=== PATIENT | female | born 1970 | race Caucasian/White ===

== ENCOUNTER 2021-06-15 13:46 | Outpatient (REF) | payer MEDICAID, SELFPAY ==
--- NOTE | ~2021-06-15 | US_ITS ---
EXAMINATION: US VENOUS ULTRASOUND WITH DOPPLER LOWER EXTREMITY, RIGHT CLINICAL INFORMATION: Right leg pain and swelling. COMPARISON: None TECHNIQUE: Ultrasound of the deep veins is performed from the hip to the calf with compression sonography and color and pulse Doppler assessment. Spectral analysis with color-flow imaging is performed. FINDINGS: There is normal venous compression and respiratory variation and augmented flow. The visualized common femoral vein, superficial femoral vein, profunda femoral vein, popliteal vein, and the trifurcation region shows no evidence of deep venous thrombosis. There is no significant popliteal fossa cyst. In the region of concern at the lateral aspect of the right ankle, there is increased edema with vascularity. There is fluid seen along what is likely a tendon, suggestive of tenosynovitis. If the patient's symptoms persist, followup ultrasound in 5 days 7 days might be of value to exclude proximal propagation from a non-visualized calf vein. US/US venous duplex LE RT IMPRESSION: No DVT demonstrated in the right lower extremity. Suspect tenosynovitis along the lateral aspect of the right ankle.
== END 2021-06-15 13:47 | disposition home or self-care (01) ==
LOC: HO.US 13:46
PROVIDERS: Visit Provider Nurse Practitioner Family
DX: M25.571 Pain in right ankle and joints of right foot (principal)
CPT/HCPCS: 93971

== ENCOUNTER 2021-07-15 08:03 | Outpatient (REF) | payer MEDICAID, SELFPAY | END 2021-07-15 08:04 | disposition home or self-care (01) | LOC: HO.HOSX 08:03 | PROVIDERS: Visit Provider Physician Assistant | DX: Z13.89 Encounter for screening for other disorder (principal) ==

== ENCOUNTER 2021-07-22 19:15 | Emergency (ER) | payer MEDICAID, SELFPAY ==
--- NOTE | 2021-07-22 | ECG_ITS ---
Test Reason : SHORTNESS OF BREATH Blood Pressure : / mmHG Vent. Rate : 107 BPM Atrial Rate : 107 BPM P-R Int : 128 ms QRS Dur : 084 ms QT Int : 328 ms P-R-T Axes : 045 044 026 degrees QTc Int : 437 ms Sinus tachycardia Otherwise normal ECG No previous ECGs available Referred By: Generic ED Physician Electronically Signed By:Yuriy Hubbard
--- NOTE | ~2021-07-22 | XR_ITS ---
EXAMINATION: XR CHEST CLINICAL INFORMATION: Covid. Shortness of breath. COMPARISON: None TECHNIQUE: 2 views of the chest were obtained. FINDINGS: The lungs are well expanded. There is no focal consolidation, edema, or effusion. No pneumothorax. The cardiomediastinal silhouette is within normal limits. No acute osseous abnormality. XR/XR chest 2V IMPRESSION: Clear lungs.
[2021-07-22 19:39] VITALS: BP 111/69; BP 150/88; PULSE 102; PULSE 112; RESP 14; TEMP 36.7; O2SAT 98; O2SAT 99; BMI 39.3
[2021-07-22 20:06] LABS: MANUAL DIFF FLAG NO
[2021-07-22 20:08] LABS: Basophils Absolute Auto 0.1 X10*3/uL (0.0-0.2); Basophils Percent Auto 0.7 % (0-2); Eosinophils Absolute Auto 0.2 X10*3/uL (0.0-0.4); Eosinophils Percent Auto 3.5 % (0-4); Hematocrit 40.8 % (37.0-47.0); Hemoglobin 13.3 g/dl (12.0-16.0); Imm Gran Abs Auto 0.01 X10*3/uL (0.00-0.03); Imm Gran Pct Auto 0.1 % (0.0-0.4); Lymphocytes Absolute Auto 1.4 X10*3/uL (1.2-4.9); Lymphocytes Percent Auto 19.9 % (20-40); Mean Corpuscular HGB Conc 32.6 g/dl (31.0-35.0); Mean Corpuscular Hemoglobin 28.9 pg (27.0-33.0); Mean Corpuscular Volume 88.5 fL (80.0-98.0); Mean Platelet Volume 10.3 fL (9.4-12.3); Monocytes Absolute Auto 0.6 X10*3/uL (0.1-1.2); Neutrophils Absolute Auto 4.6 x10*3/uL (2.0-8.3); Neutrophils Percent Auto 66.8 % (45-73); Platelet Count 247 X10*3/uL (160-400); Red Blood Count 4.61 X10*6/uL (4.20-5.50); Red Cell Distribution Width 12.3 % (11.0-16.0); White Blood Count 6.9 X10*3/uL (4.8-10.8)
[2021-07-22 20:23] LABS: Influenza A Negative (Negative); Influenza B2 Negative (Negative)
[2021-07-22 20:38] LABS: Alanine Aminotransferase 30 U/L (0-31); Alkaline Phosphatase 85 U/L (39-117); Anion Gap 14 (12-20); Aspartate Amino Transferase 25 U/L (5-31); Bilirubin Total 0.5 mg/dL (0.0-1.0); Blood Urea Nitrogen 20 mg/dL (9-16); Calcium 9.5 mg/dL (8.4-10.2); Carbon Dioxide 22 mmol/L (22-29); Chloride 103 mmol/L (96-108); Creatinine Clr Calc Pharmacy 76.4; Estimated Glomerular Filt Rate > 60; Glucose Random 110 mg/dL (60-115); Sodium 135 mmol/L (135-145); Total Protein 7.6 g/dL (6.5-8.0)
--- NOTE | 2021-07-22 23:14 | ED_ITS ---
HPI - URI/Sore Throat General Chief Complaint: Upper Respiratory Symptoms Stated Complaint: +Covid Time Seen by Provider: 07/22/21 22:49 Source: patient Mode of arrival: EMS History of Present Illness HPI Narrative: 50-year-old female without significant past medical history of respiratory disorders and denies being a cigarette smoker presents via EMS with reports of cough, sore throat, congestion as well shortness of breath and states that she took go home COVID-19 test and states that was positive. Otherwise she denies any fever, chills, GI or symptoms. Related Data Allergies Allergy/AdvReac Type Severity Reaction Status Date / Time No Known Allergies Allergy Verified 07/22/21 23:03 Review of Systems Review of Systems: Pertinent positives and negatives as stated in HPI 10 point review of systems is otherwise negative. [facility] Past Medical History Source: nursing notes reviewed Social History Social History Advance Directives: No Advance Directives Information Provided: No Physical Exam Vital Signs: Vital Signs: Last Vital Signs Temp 98.1 F 07/22/21 19:39 Pulse 112 H 07/22/21 19:39 Resp 14 07/22/21 19:39 BP 111/69 07/22/21 19:39 Pulse Ox 99 07/22/21 19:39 BMI result Body Mass Index 39.3 VITAL SIGNS: Reviewed. GENERAL: Well developed, well nourished, in no acute distress. HEAD: Normocephalic/atraumatic EYES: PERRLA, EOMI EARS: Ext canals without abnormality, TMs non-bulging and non-erythematous NOSE: Nares patent bilateral OROPHARYNX: no oral lesions noted, posterior pharynx clear and non-erythematous without noted tonsillar enlargement/erythema/exudates NECK: Supple, no adenopathy LUNGS: Normal breath sounds. No adventitious sounds or accessory muscle use. SpO2<99> CARDIOVASCULAR: Regular rate and rhythm without noted murmurs, no JVD or lower extremity edema. ABDOMEN: Soft, non-tender, non-distended with bowel sounds. SKIN: Inspection of the skin reveals no rashes NEUROLOGIC: Alert and oriented x 4. Strength and sensation to light touch were grossly intact x 4. Course Course Course Narrative: 50-year-old female with history and clinical presentation of viral syndrome without history asthma / COPD / cigarette use and review of all vital signs and investigations negative for evidence of tachypnea, elevated temperature, and al though patient is noted to be mildly tachycardic pulse oximetry is within normal limits on room air. COVID is positive and patient was informed of all results and discharged home in stable condition. MDM - URI/Sore Throat Lab Data Result diagrams: 07/22/21 20:01 07/22/21 20:01 Labs: Lab Results 07/22/21 07/22/21 07/22/21 Range/Units 20:01 20:01 20:01 WBC 6.9 (4.8-10.8) X10*3/uL RBC 4.61 (4.20-5.50) X10*6/uL Hgb 13.3 (12.0-16.0) g/dl Hct 40.8 (37.0-47.0) % MCV 88.5 (80.0-98.0) fL MCH 28.9 (27.0-33.0) pg MCHC 32.6 (31.0-35.0) g/dl RDW 12.3 (11.0-16.0) % Plt Count 247 (160-400) X10*3/uL MPV 10.3 (9.4-12.3) fL Immature Gran % (Auto) 0.1 (0.0-0.4) % Neut % (Auto) 66.8 (45-73) % Lymph % (Auto) 19.9 L (20-40) % [place] % (Auto) 9.0 (2-11) % Eos % (Auto) 3.5 (0-4) % Baso % (Auto) 0.7 (0-2) % Lymph # (Auto) 1.4 (1.2-4.9) X10*3/uL [place] # (Auto) 0.6 (0.1-1.2) X10*3/uL Eos # (Auto) 0.2 (0.0-0.4) X10*3/uL Baso # (Auto) 0.1 (0.0-0.2) X10*3/uL Abs Immat Gran (auto) 0.01 (0.00-0.03) X10*3/uL Absolute Neuts (auto) 4.6 (2.0-8.3) x10*3/uL Absolute Nucleated RBC 0.000 (0.0-0.012) X10*3/uL Nucleated RBC % (auto) 0.0 (0.0-0.2) /100WBC Sodium 135 (135-145) mmol/L Potassium 4.0 (3.3-5.1) mmol/L Chloride 103 (96-108) mmol/L Carbon Dioxide 22 (22-29) mmol/L Anion Gap 14 (12-20) BUN 20 H (9-16) mg/dL Creatinine 0.96 (0.5-1.4) mg/dL Estim Creat Clear Calc 76.4 Estimated GFR > 60 Random Glucose 110 (60-115) mg/dL Calcium 9.5 (8.4-10.2) mg/dL Total Bilirubin 0.5 (0.0-1.0) mg/dL AST 25 (5-31) U/L ALT 30 (0-31) U/L Alkaline Phosphatase 85 (39-117) U/L Total Protein 7.6 (6.5-8.0) g/dL Albumin 4.0 (3.5-5.0) g/dL COVID-19 (LENORA) (Negative) COVID-19 Clin Com Influenza Type A (SHERLEY) Negative (Negative) Influenza Type B (SHERLEY) Negative (Negative) Influenza A & B Note See Note 07/22/21 Range/Units 23:07 WBC (4.8-10.8) X10*3/uL RBC (4.20-5.50) X10*6/uL Hgb (12.0-16.0) g/dl Hct (37.0-47.0) % MCV (80.0-98.0) fL MCH (27.0-33.0) pg MCHC (31.0-35.0) g/dl RDW (11.0-16.0) % Plt Count (160-400) X10*3/uL MPV (9.4-12.3) fL Immature Gran % (Auto) (0.0-0.4) % Neut % (Auto) (45-73) % Lymph % (Auto) (20-40) % [place] % (Auto) (2-11) % Eos % (Auto) (0-4) % Baso % (Auto) (0-2) % Lymph # (Auto) (1.2-4.9) X10*3/uL [place] # (Auto) (0.1-1.2) X10*3/uL Eos # (Auto) (0.0-0.4) X10*3/uL Baso # (Auto) (0.0-0.2) X10*3/uL Abs Immat Gran (auto) (0.00-0.03) X10*3/uL Absolute Neuts (auto) (2.0-8.3) x10*3/uL Absolute Nucleated RBC (0.0-0.012) X10*3/uL Nucleated RBC % (auto) (0.0-0.2) /100WBC Sodium (135-145) mmol/L Potassium (3.3-5.1) mmol/L Chloride (96-108) mmol/L Carbon Dioxide (22-29) mmol/L Anion Gap (12-20) BUN (9-16) mg/dL Creatinine (0.5-1.4) mg/dL Estim Creat Clear Calc Estimated GFR Random Glucose (60-115) mg/dL Calcium (8.4-10.2) mg/dL Total Bilirubin (0.0-1.0) mg/dL AST (5-31) U/L ALT (0-31) U/L Alkaline Phosphatase (39-117) U/L Total Protein (6.5-8.0) g/dL Albumin (3.5-5.0) g/dL COVID-19 (LENORA) Positive A (Negative) COVID-19 Clin Com See Note Influenza Type A (SHERLEY) (Negative) Influenza Type B (SHERLEY) (Negative) Influenza A & B Note Discharge Plan Discharge Clinical Impression: Viral syndrome, Lab test positive for detection of COVID-19 virus Patient Disposition: Home, Self-Care Instructions: Viral Syndrome (ED), COVID-19 (Coronavirus Disease 2019) (ED) Additional Instructions: 1. Le cervantes diagnosticado COVID-19 y debe ponerse en cuarentena josefina los pr?ximos 10 a 14 d?as y seguir todas las pautas estatales y federales. 2. Descanse lo suficiente, caridad zaheer agua y recomiende Tylenol/ibuprofeno de venta juan seg?n sea necesario para radha corporales, radha de dariana, temperaturas superiores a 100.4. 3. Programe mis blanche de telemedicina con kenny proveedor de atenci?n primaria el lunes por la ma?brandie. Regrese a la kendall de emergencias si los s?ntomas empeoran. Print Language: Burundian
[2021-07-22 23:25] LABS: COVID-19 Test Positive (Negative)
[2021-07-22] MEDS: Acetaminophen 325 MG TABLET 975 MG PO (23:55)
[2021-07-22] MEDS: Ibuprofen 400 MG TABLET PO (23:55)
== END 2021-07-23 00:24 | disposition home or self-care (01) ==
PROVIDERS: Emergency Provider Student in an Organized Health Care Education/Training Program
DX: U07.1 COVID-19 (principal); Z79.899 Other long term (current) drug therapy
CPT/HCPCS: 71046; 80053; 85025; 87502; 87635; 93005; 99283; 99284

== ENCOUNTER 2021-08-05 15:03 | Outpatient (REF) | payer MEDICAID, SELFPAY ==
--- NOTE | ~2021-08-05 | MM_ITS ---
EXAMINATION: MM SCREENING DIGITAL BREAST TOMOSYNTHESIS, BILATERAL CLINICAL INFORMATION: Screening. Asymptomatic. Age 50. Prior history reduction mammoplasty. Prior outside mammography from [place] unavailable. The lifetime risk of breast cancer based on the Tyrer-Cuzick Model is 12%. COMPARISON: None. TECHNIQUE: Digital breast tomosynthesis is performed in both the craniocaudal and mediolateral oblique views along with computer-aided detection (CAD). Synthesized 2D images are generated from the tomosynthesis. FINDINGS: There are scattered areas of fibroglandular density (ACR BI-RADS breast composition Category b). There is minor scarring and scattered benign rim lucent centered calcifications, greater on left consistent with the prior reduction mammoplasty. There is no significant mass or architectural abnormality or abnormal calcifications. The axilla are unremarkable. MM/MM tomosynthesis screening BI IMPRESSION: No mammographic evidence of malignancy. ASSESSMENT: BI-RADS 2: Benign RECOMMENDATION: Routine annual mammography screening. This patient's information was entered into a reminder system with a target due date for their next mammogram.
== END 2021-08-05 15:04 | disposition home or self-care (01) ==
LOC: HO.MAMMO 15:03
PROVIDERS: Visit Provider Advanced Practice Midwife
DX: Z12.31 Encounter for screening mammogram for malignant neoplasm of breast (principal)
CPT/HCPCS: 77063; 77067

== ENCOUNTER 2021-08-18 07:45 | Outpatient (REF) | payer MEDICAID, SELFPAY ==
--- NOTE | ~2021-08-18 | XR_ITS ---
EXAMINATION: XR ANKLE, RIGHT CLINICAL INFORMATION: Pain COMPARISON: None TECHNIQUE: AP, lateral, and mortise views of the right ankle. FINDINGS: Visualized portion of the distal tibia and fibula demonstrate no fracture. Ankle mortise is maintained. There is mild soft tissue swelling of the ankle, more prominent laterally. No gross ankle joint effusion. Soft tissue calcification within the anterior tissues. XR/XR ankle RT min 3V IMPRESSION: Mild soft tissue swelling of the ankle without fracture.
== END 2021-08-18 07:46 | disposition home or self-care (01) ==
LOC: HO.HOSX 07:45
PROVIDERS: Visit Provider Physician Assistant
DX: M76.71 Peroneal tendinitis, right leg (principal)
CPT/HCPCS: 73610; 99202

== ENCOUNTER → 2021-09-29 15:05 | Outpatient (BNVA) | payer MEDICAID, SELFPAY | PROVIDERS: Visit Provider Physician Assistant | DX: M76.70 Peroneal tendinitis, unspecified leg (principal) | CPT/HCPCS: 99212 ==

== ENCOUNTER 2021-10-05 16:00 | Outpatient (RCR) | payer MEDICAID, SELFPAY ==
--- NOTE | 2021-09-16 08:43 | MHC.PT.EP ---
[facility] [place] Office [place] Office [place] Office [address] [phone] F: [phone] F: [phone] F: [phone] F: [phone] Physical Therapy Plan of Care Date of Evaluation: Date of Surgery: Diagnosis: peroneal tendinitis R leg Assessment: Patient is a 51 year old R handed female who presents with s/s consistent with R ankle pain, peroneal tendinitis. 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 Patient past medical history is fairly unremarkable. Current impairments include pain, gait mechanics, ROM, strength, activity tolerance and functional mobility. Functional limitations include decreased ability to . Patient is motivated with good rehab potential. Skilled PT will address impairments and functional limitations in order to achieve goals. Frequency and Duration: The patient will be seen 2x/week for 5 weeks Short Term Goals: I with HEP -2 weeks Symmetrical AROM - 3 weeks Symmetrical gait mechanics - 3 weeks Planned Giving Officer Goals: Strength grossly 4/5 - 5 weeks pain free work day - 5 weeks LEFS 60/80 - 5 weeks Treatment Plan: Modalities to reduce pain, spasms and effusion. Manual therapy to restore motion and function. Therapeutic exercise to improve strength and flexibility. Neuromuscular re-education for posture and balance. Therapeutic activities to return to functional activities of daily living. Electronically signed by: Jonas Soto PT Please sign and return to therapist. Thank you for your referral.
--- NOTE | 2021-12-29 11:13 | MHC.PT.DC ---
[facility] [place] Office [place] Office [place] Office [address] Deysi Sanford [address] [phone] F: [phone] F: [phone] F: [phone] F: [phone] Physical Therapy Discharge Report Diagnosis: peroneal tendinitis R leg Date of Surgery: Date of Evaluation: 09/15/21 Date of Discharge: 11/19/21 Treatments to Date: 5 Cancellations to Date: No Shows to Date: Discharge Status: Discharge Summary: Pt on HEP. improving slowly with function, reduced s/s. elected to transition to HEP exclusively at this time. Electronically signed by: Jonas Soto PT Please sign and return to therapist. Thank you for your referral.
== END 2021-12-29 11:13 | disposition home or self-care (01) ==
LOC: HO.PTCHIC 16:00
PROVIDERS: Visit Provider Physician Assistant
DX: M76.70 Peroneal tendinitis, unspecified leg (principal)
CPT/HCPCS: 97110; 97112; 97140; 97161

== ENCOUNTER 2021-10-13 15:49 | Outpatient (REF) | payer MEDICAID, SELFPAY ==
--- NOTE | ~2021-10-13 | MR_ITS ---
EXAMINATION: MRI OF THE RIGHT ANKLE WITHOUT CONTRAST CLINICAL INFORMATION: Peroneal tendinitis. COMPARISON: X-ray the right ankle 08/18/2021 TECHNIQUE: Prior right ankle was performed without contrast high-field MRI scanner. FINDINGS: Subcutaneous soft tissues: Mild scattered edema in the medial lateral and aspects of the ankle. Muscles and tendons: Peroneals: Peroneal brevis: There is a longitudinal split tear of the peroneal brevis tendon extending over approximately 1 cm as it passes below the fibula. Proximally and distally the tendon is intact. There is mild associated tenosynovitis. Peroneal longus is intact. The remaining muscles and tendons are normal. Plantar fascia: Normal. Neurovascular structures: Normal. Ligaments: Normal. Bone MR/MR ankle RT wo con IMPRESSION: Focal longitudinal split tear of the peroneal brevis tendon as it passes below the fibula. Mild associated tenosynovitis.
== END 2021-10-13 15:50 | disposition home or self-care (01) ==
LOC: HO.MRI 15:49
PROVIDERS: Visit Provider Physician Assistant
DX: M76.70 Peroneal tendinitis, unspecified leg (principal)
CPT/HCPCS: 73721

== ENCOUNTER → 2021-11-24 12:28 | Outpatient (BNVA) | payer MEDICAID, SELFPAY | PROVIDERS: Visit Provider Physician Assistant | DX: M76.70 Peroneal tendinitis, unspecified leg (principal) | CPT/HCPCS: 99212 ==

== ENCOUNTER → 2021-12-21 15:31 | Outpatient (BNVA) | payer MEDICAID, SELFPAY | PROVIDERS: Visit Provider Orthopaedic Surgery | DX: R20.0 Anesthesia of skin (principal); R20.2 Paresthesia of skin; M65.341 Trigger finger, right ring finger; M65.332 Trigger finger, left middle finger; G56.03 Carpal tunnel syndrome, bilateral upper limbs | CPT/HCPCS: 99202 ==

== ENCOUNTER 2021-12-29 06:45 | Day surgery (SDC) | payer MEDICAID, SELFPAY ==
--- NOTE | 2021-12-29 11:04 | MHC.SHP ---
Pre-Procedural Eval Section A Date of Service: 12/29/21 The patient is an INPATIENT: No Changes since office visit: No Cold of Flu in the past 2 weeks, No New Medical Problems, No Changes in Medication and No Patient answered all questions The History & Physical has been completed within 30 days and I have reviewed it.: Yes Section B Chief Complaint: Carpal tunnel syndrome, right upper limb Allergies: Allergies Allergy/AdvReac Type Severity Reaction Status Date / Time No Known Allergies Allergy Verified 12/21/21 15:41 Plan I have reviewed the history and physical and performed a pertinent physical examination on my patient. No changes have occurred unless specified.
--- NOTE | 2021-12-29 11:05 | P.OP_ITS ---
Operative Note Operative Note Date of Service: 12/29/21 Narrative: Preop diagnosis: 1. Right Carpal tunnel syndrome 2. Right ring finger trigger finger Postop diagnosis: same Procedure: 1. right Carpal tunnel release 2. Right ring finger trigger release Surgeon: Karla Carson MD Anesthesia: local block using 1% lidocaine with epinephrine Findings: Thickened transverse carpal ligament. EBL: Less than 5 mL Specimens: None Complications: None Disposition: Brought to recovery room in stable condition Plan: Follow-up for 10-14 days for wound check and suture removal Indications: The patient is 51 years old, with right carpal tunnel syndrome and right ring finger trigger finger that have beenunresponsive to nonoperative management. The risks and benefits of operative treatment including but not limited to risk of damage to blood vessels, nerves, tendons, infection, persistent pain, persistent symptoms, or possible need for additional surgery were discussed with the patient and the patient wishes to proceed with surgery. Procedure: Once consent was obtained a local block was performed using a combination of 1% lidocaine with epinephrine. The patient was then brought back to the operating suite and placed on the operative table in supine position. A tourniquet was applied to the proximal aspect of the right upper extremity and the limb was prepped and draped in a standard surgical fashion. Once assured that we had a good block, a 2.0 cm longitudinal incision was made centered over the carpal tunnel. The incision was made through the skin to the subcutaneous tissues using a #15 blade. Dissection was made down to the level of the transverse carpal ligament with care being taken to protect the palmar cutaneous nerve. Once the transverse carpal ligament was clearly visualized, a longitudinal incision was made in the transverse carpal ligament 1st using a #15 blade, then using tenotomy scissors under direct visualization. Care was taken to look for and protect the motor branch of the median nerve when seen in this area. Once assured that we had a good block, a 1.5 cm oblique incision was made centered over the A1 ted of the Right ring finger . The incision was made through the skin to the subcutaneous tissues using a #15 blade. Careful dissection was made down to the level of the A1 ted using tenotomy scissors, with care being taken to protect the nearby neurovascular structures. A longit udinal incision was made in the A1 ted 1st using a #15 blade, then using tenotomy scissors under direct visualization. The A1 ted was noted to be thickened. Following our A1 ted release, we no longer saw any locking or catching of the digit with flexion and extension. Once satisfied with our carpal tunnel and trigger releases the wounds were copiously irrigated with normal saline and hemostasis was obtained with a brief period of local pressure. The skin edges were reapproximated with some 5.0 nylon suture material and a sterile dressing was applied. The patient appears to have tolerated the procedure well and with no complications. All digits were well vascularized at the conclusion of the case.
[2021-12-29 12:58] VITALS: BP 135/64; PULSE 74; RESP 18; TEMP 36.6
== END 2021-12-29 13:00 | disposition home or self-care (01) ==
PROVIDERS: Visit Provider Orthopaedic Surgery
PROC: (CPT 64721; principal; 2021-12-29 17:50)
PROC: (CPT 26055; 2021-12-29 17:50)
DX: G56.01 Carpal tunnel syndrome, right upper limb (principal); M65.341 Trigger finger, right ring finger; R20.0 Anesthesia of skin; R20.2 Paresthesia of skin; J30.2 Other seasonal allergic rhinitis; F32.A Depression, unspecified; F41.9 Anxiety disorder, unspecified
CPT/HCPCS: 64721; 26055; J0171

== ENCOUNTER → 2022-07-04 15:37 | Outpatient (BNVA) | payer MEDICAID, SELFPAY | PROVIDERS: Visit Provider Orthopaedic Surgery | DX: M65.341 Trigger finger, right ring finger (principal); M65.332 Trigger finger, left middle finger; G56.03 Carpal tunnel syndrome, bilateral upper limbs; M65.311 Trigger thumb, right thumb; M65.331 Trigger finger, right middle finger; R20.0 Anesthesia of skin; R20.2 Paresthesia of skin | CPT/HCPCS: 20550; 99212; J1100 ==

== ENCOUNTER 2022-07-10 10:04 | Outpatient (REF) | payer MEDICAID, SELFPAY ==
--- NOTE | ~2022-07-10 | XR_ITS ---
EXAMINATION: XR KNEE, BILATERAL XR KNEE, RIGHT CLINICAL INFORMATION: Pain. COMPARISON: None available. TECHNIQUE: AP bilateral knee standing 1 view. Right knee 2 views. FINDINGS: AP Bilateral Knee: There is mild loss of medial compartment joint space both knees. The lateral compartment joint is maintained. No bony erosive changes, loose bodies, fracture or soft tissue swelling. Right Knee: The patellofemoral compartment joint space is normal. No bony erosive changes or loose body seen. The soft tissues are normal. XR/XR knee RT 2V IMPRESSION: 1. Mild degenerative changes medial compartment both knees. No visible acute fracture or dislocation seen. 2. Unremarkable right knee exam.
--- NOTE | ~2022-07-10 | XR_ITS ---
EXAMINATION: XR KNEE, BILATERAL XR KNEE, RIGHT CLINICAL INFORMATION: Pain. COMPARISON: None available. TECHNIQUE: AP bilateral knee standing 1 view. Right knee 2 views. FINDINGS: AP Bilateral Knee: There is mild loss of medial compartment joint space both knees. The lateral compartment joint is maintained. No bony erosive changes, loose bodies, fracture or soft tissue swelling. Right Knee: The patellofemoral compartment joint space is normal. No bony erosive changes or loose body seen. The soft tissues are normal. XR/XR knee standing BI IMPRESSION: 1. Mild degenerative changes medial compartment both knees. No visible acute fracture or dislocation seen. 2. Unremarkable right knee exam.
== END 2022-07-10 10:05 | disposition home or self-care (01) ==
LOC: HO.HOSX 10:04
PROVIDERS: Visit Provider Physician Assistant
DX: M76.891 Other specified enthesopathies of right lower limb, excluding foot (principal)
CPT/HCPCS: 73560; 73565; 99212

== ENCOUNTER 2022-07-12 09:33 | Outpatient (REF) | payer MEDICAID, SELFPAY ==
--- NOTE | ~2022-07-12 | XR_ITS ---
EXAMINATION: XR FOOT, RIGHT CLINICAL INFORMATION: Pain. COMPARISON: Radiographs dated 08/18/2021. TECHNIQUE: AP, lateral, and oblique views of the right foot. FINDINGS: The bones and soft tissues are normal. No fracture. Alignment is anatomic. Joint spaces are maintained. XR/XR foot RT min 3V IMPRESSION: Normal right foot.
== END 2022-07-12 09:34 | disposition home or self-care (01) ==
LOC: HO.XRAY 09:33
PROVIDERS: Visit Provider Emergency Medicine
DX: M79.671 Pain in right foot (principal)
CPT/HCPCS: 73630

== ENCOUNTER 2022-12-25 09:26 | Outpatient (REF) | payer MEDICAID, SELFPAY ==
--- NOTE | ~2022-12-25 | XR_ITS ---
EXAMINATION: XR RIBS, RIGHT CLINICAL INFORMATION: Right rib cage pain. Anterior right rib pain x5 days. No injury. COMPARISON: Chest x-ray 07/22/2021. TECHNIQUE: 3 views of the right ribs were obtained. FINDINGS: The cardiomediastinal silhouette is stable. The lungs are well expanded. No consolidation or effusion. Cholecystectomy clips. No visible rib fracture or suspicious osseous lesion. XR/XR ribs RT min 3V w CXR1V IMPRESSION: No visible rib abnormality. No acute cardiopulmonary findings.
== END 2022-12-25 09:27 | disposition home or self-care (01) ==
LOC: HO.HHCX 09:26
PROVIDERS: Visit Provider Internal Medicine
DX: R07.81 Pleurodynia (principal)
CPT/HCPCS: 71101

== ENCOUNTER 2022-12-25 18:48 | Outpatient (REF) | payer MEDICAID, SELFPAY ==
[2022-12-25 19:41] LABS: Influenza A PCR NEGATIVE (Negative); Influenza B PCR NEGATIVE (Negative); Resp Syncy Virus RNA Qual PCR NEGATIVE (Negative); SARS COV2 PCR INHOUSE NEGATIVE (Negative)
== END 2022-12-25 18:49 | disposition home or self-care (01) ==
LOC: HO.HHCLNP 18:48
PROVIDERS: Visit Provider Internal Medicine
DX: Z20.822 Contact with and (suspected) exposure to COVID-19 (principal); J06.9 Acute upper respiratory infection, unspecified
CPT/HCPCS: 0241U

== ENCOUNTER 2023-06-15 09:32 | Outpatient (REF) | payer MEDICAID, SELFPAY ==
--- NOTE | ~2023-06-15 | XR_ITS ---
EXAMINATION: XR ELBOW, RIGHT CLINICAL INFORMATION: Pain in unspecified elbow. COMPARISON: None available. TECHNIQUE: AP, lateral, and oblique views of the right elbow. FINDINGS: Alignment preserved. Bone mineralization is normal. No significant joint effusion. On the very superior margin of the lateral image of the elbow, there are at least 2 partially imaged densities along the volar aspect of the proximal to mid humeral shaft of indeterminate etiology. Dedicated views of the right humerus and correlation with the clinical exam are recommended to determine further management. Small calcification along the lateral epicondyle may represent a bony exostosis versus soft tissue calcification or avulsion of uncertain age. XR/XR elbow RT min 3V IMPRESSION: 1. On the very superior margin of the lateral image of the elbow, there are at least 2 partially imaged densities along the volar aspect of the proximal to mid humeral shaft of indeterminate etiology. Dedicated views of the right humerus and correlation with the clinical exam recommended to determine further management. 2. Small calcification along the lateral epicondyle may represent a bony exostosis versus soft tissue calcification or avulsion of uncertain age. Correlation with clinical exam recommended. Recommend follow up imaging in 10-14 days if fracture is suspected.
== END 2023-06-15 09:33 | disposition home or self-care (01) ==
LOC: HO.HOSX 09:32
PROVIDERS: Visit Provider Physician Assistant
DX: M77.11 Lateral epicondylitis, right elbow (principal)
CPT/HCPCS: 73080; 99212

== ENCOUNTER 2023-06-15 10:58 | Outpatient (AMB) | payer MEDICAID, SELFPAY ==
--- NOTE | 2023-06-15 11:21 | A.OFFVIS_ITS ---
Intake Vital Signs 06/15/23 11:21 Handedness Right Intake Visit Reasons: New prob- Rt elbow pain Intake Note: Livia is a 52 year old right hand dominant female who presents today for a evaluation of her right elbow pain. Patient reports ongoing pain for more than 2 years. Hx of using ice, antiinflammatories with no relief. Pain is worse when sleeping on the right side. She states that her pain is better when she is using compression wraps. Allergies No Known Allergies Allergy (Verified 06/15/23 11:24) HPI New prob- Rt elbow pain HPI Details 52-year-old right hand dominant female elisa sanchez presents in the office today for an evaluation of right elbow pain. The patient reports ongoing pain for more than 2 years. She claims to have used ice and anti-inflammatories with no relief. She states the pain increases when sleeping on her right side. She states the pain is better with the use of a compression wrap. [facility] Medical History Anxiety Depressed Dryness of vagina Seasonal allergic reaction Sleep disorder Social History (Updated 06/15/23 @ 11:25 by Eduardo Haider) Alcohol intake: never Patient Tobacco Use Status: Never used Tobacco Current occupational status: employed Current occupation: rt hand/ house keeper Review of Systems Const All systems reviewed & are unremarkable except as noted in HPI and below Physical Exam Const General: cooperative, healthy appearing and no acute distress Resp Effort & Inspection: normal respiratory effort and able to speak in complete sentences Cardio Rate: regular rate Peripheral pulses: Peripheral pulses 2+ throughout GI Palpation (GI): Soft to palpation Skin Lesions: no lesions Rashes: no rashes Extrem Other: Right elbow: Normal to inspection. No ecchymosis, erythema, or edema. No tenderness to palpation over the olecranon. No tenderness to the medial epicondyle. Tenderness to palpation along the lateral epicondyle. NVI. Assessment & Plan Assessment & Plan (1) Lateral epicondylitis of right elbow: Code(s): M77.11 - Lateral epicondylitis, right elbow Plan Ms. Vitaly Mohan is a 52-year-old right hand dominant female who presents in the office today for an evaluation of right elbow pain. The patient reports ongoing pain for more than 2 years. She claims to have used ice and anti- inflammatories with no relief. She states the pain increases when sleeping on her right side. She states the pain is better with the use of a compression wrap. We discussed the role of cortisone injections while in the office today. She would like to hold off at this time. A referral has been placed for occupational therapy. Follow up will be in 4 weeks, or sooner if needed. X-rays of the right elbow which were obtained while in the office today and were reviewed by me, Antonieta Alexandra PA-C, revealed no acute fractures or dislocation. Orders: Orders XR elbow RT min 3V Today M25.529 - Pain in unspecified elbow OT Evaluation and Treatment Today M77.11 - Lateral epicondylitis, right elbow Patient Instructions: Scribed by Vida Bennett medical assistant supervisor, for Antonieta Alexandra PA-C on 06/15/2023 at 11:00 am, EST. Coding Level of Care Code Est Pt Level 3 (29968) Diagnoses Lateral epicondylitis of right elbow M77.11
== END 2023-06-15 11:39 | disposition home or self-care (01) ==
PROVIDERS: Visit Provider Physician Assistant
DX: M77.11 Lateral epicondylitis, right elbow (principal)
CPT/HCPCS: 99213

== ENCOUNTER 2023-08-11 22:21 | Emergency (ER) | payer MEDICAID, SELFPAY ==
--- NOTE | ~2023-08-11 | XR_ITS ---
EXAMINATION: XR CHEST, 2 VIEWS CLINICAL INFORMATION: Productive cough. COMPARISON: 12/25/2022 TECHNIQUE: PA and lateral views of the chest were obtained. FINDINGS: Linear atelectasis is suspected at the lung bases. Mild bronchial wall thickening is also suspected in the perihilar regions. No consolidation, pneumothorax, or pleural effusion. Cardiac and mediastinal contours are normal. Pulmonary vasculature is unremarkable. Trachea is midline. Osseous structures are unremarkable. Cholecystectomy clips in the right upper quadrant. XR/XR chest 2V IMPRESSION: Bronchial wall thickening can be seen with a small airways process such as asthma or atypical/viral infection. No focal consolidation.
[2023-08-11 22:25] VITALS: BP 156/94; PULSE 99; O2SAT 98
[2023-08-11 22:45] VITALS: BP 136/70; PULSE 92; RESP 18; TEMP 37.1; O2SAT 96; BMI 37.6
[2023-08-12 00:06] VITALS: O2SAT 96
--- NOTE | 2023-08-12 00:29 | ED.URI ---
HPI - URI/Sore Throat General Chief Complaint: Upper Respiratory Symptoms Stated Complaint: diff breathing, coughing fit, minor wheezing, pain Time Seen by Provider: 08/12/23 00:19 Source: patient Mode of arrival: EMS Limitations: language barrier (Patient speaks Pakistani only, paraprofessional interpreter used) History of Present Illness HPI Narrative: 52-year-old female with a history of anxiety and depression who presents emergency department for evaluation of sore throat cough and shortness of breath. The patient states this morning she developed a sore throat. Pain is worse with swallowing. She states that this evening she drank a glass of water, she states she started coughing, choking and then developed shortness of breath. Her daughter was concerned about her choking and called an ambulance. Patient states that she is currently feeling pain in her throat as if something is stuck in the back of her throat. She also states that it is painful to swallow. She denied fever, chills, nausea or vomiting. At the time my evaluation she denied feeling short of breath. Related Data Home Medications ?Medication ?Instructions ?Recorded ?Confirmed ibuprofen 400 mg tablet 400 mg PO Q6H PRN pain 08/18/21 paroxetine HCl 20 mg tablet 20 mg PO DAILY 08/18/21 risperidone 0.5 mg tablet 0.5 mg PO BEDTIME 08/18/21 risperidone 1 mg tablet 1 mg PO BEDTIME 08/18/21 benzonatate 100 mg capsule 100 mg PO TID PRN cough 12/21/21 capsaicin 0.025 % topical cream appl topical 12/21/21 cetirizine 10 mg tablet 10 mg PO DAILY PRN allergies 12/21/21 cyclobenzaprine 5 mg tablet 5 - 10 mg PO BID PRN pain 12/21/21 tizanidine 4 mg tablet 4 mg PO BEDTIME 12/21/21 Previous Rx's ?Medication ?Instructions ?Recorded omeprazole 20 mg capsule,delayed 20 mg PO DAILY 30 days #30 caps 08/12/23 release Allergies Allergy/AdvReac Type Severity Reaction Status Date / Time No Known Allergies Allergy Verified 08/11/23 22:45 Review of Systems Review of Systems: Yes all other systems are reviewed and are negative [facility] Past Medical History [facility] Narrative: Past medical history: Depression, anxiety. Social history: She denies tobacco, alcohol and drug use. Medical History (Reviewed 07/10/22 @ 14:11 by RUTH Hines Anxiety Depressed Dryness of vagina Seasonal allergic reaction Sleep disorder Social History Social History (Updated 06/15/23 @ 11:25 by Eduardo Haider) Alcohol intake: never Patient Tobacco Use Status: Never used Tobacco Smoked in Last 30 Days: No Use of substances other than those prescribed or required for medical reasons: No Advance Directives: No Advance Directives Information Provided: No Patient : No Current occupational status: employed Current occupation: rt hand/ house keeper Physical Exam Vital Signs: Vital Signs: Last Vital Signs Temp 98.7 F 08/11/23 22:45 Pulse 92 08/11/23 22:45 Resp 18 08/11/23 22:45 BP 136/70 08/11/23 22:45 Pulse Ox 96 08/12/23 00:06 O2 Del Method Room Air 08/12/23 00:06 BMI result Body Mass Index 37.6 Vital signs were normal Exam: General: Awake, alert in no distress, weight 96.3 kg, elevated BMI 37.6 kg per m2 Head: Normocephalic, atraumatic EENT: PERRL, Lids normal, sclera normal, conjunctiva normal, nose normal , ears normal, throat without erythema or exudates Neck: Supple, no adenopathy Lung: breath sounds symmetric, no wheezing, rales or rhonchi Chest: symmetric movement, nontender Heart: regular rate and rhythm, normal S1, S2 no murmurs or rubs Abdomen: soft, non-tender, nondistended, normal bowel sounds Back: no vertebral tenderness, no CVAT Extremities: no deformities, moves all extremities symmetrically Neuro: Awake, alert, oriented, normal speech, cranial nerves intact, moves all extremities symmetrically Psych: Pleasant, cooperative Medications Administered Discontinued Medications Generic Name Dose Route Start Last Admin Trade Name Freq PRN Reason Stop Dose Admin Ibuprofen 400 mg 08/12/23 00:47 08/12/23 01:10 Ibuprofen 400 Mg Tablet PO 08/12/23 00:48 400 mg ONCE STA Administration Medical Decision Making Medical Decision Making [facility] Narrative: 52-year-old female with a history of depression, anxiety who presents emergency department for evaluation of sore throat which began earlier today, difficulty swallowing with an episode of choking, coughing and shortness of breath after try to drink water prior to coming to the emergency department. Patient's vital signs were normal. Patient's physical examination was unremarkable. Differential diagnosis: ?Includes but is not limited to viral pharyngitis, streptococcal pharyngitis, viral syndrome, globus, COVID-19, influenza, RSV Following evaluation was ordered: Rapid strep, COVID, influenza, RSV Patient was initially treated with the following: Ibuprofen 400 mg 1 Course: 02:04 My interpretation patient's laboratory evaluation is as follows: COVID-19, RSV and influenza were negative. Rapid strep was negative. At this time I think that the patient's symptoms are more consistent with GERD causing her cough and and sore throat. Patient will be started on Prilosec 20 mg once a day for 1 month. She was given printed and verbal instructions discharged home. Lab Data Labs: Lab Results 08/12/23 Range/Units 00:30 Influenza Type A (PCR) NEGATIVE (Negative) Influenza Type B (PCR) NEGATIVE (Negative) RSV RNA Qual (PCR) NEGATIVE (Negative) SARS-CoV-2 RNA (RT-PCR) NEGATIVE (Negative) S. pyogenes GrpA SHERLEY Negative (Negative) Discharge Plan Discharge Clinical Impression: GERD with esophagitis Patient Disposition: Home, Self-Care Instructions: Gastroesophageal Reflux Disease (ED) Additional Instructions: Your COVID-19, RSV and influenza tests were negative. Your rapid strep test was negative as well. At this time I believe that your sore throat and cough are caused by too much acid in your stomach that is traveling up your esophagus into the back of your throat. Take Prilosec (omeprazole) 20 mg pills, 1 pill once a day for 1 month. ?This medication shuts off your acid production and lets the inflammation in your stomach and esophagus heal. Follow-up with your doctor in 2 days. Please return to the emergency department if your symptoms get worse or if you develop any symptoms that are concerning to you. Follow-up with your doctor in 2 days. Please return to the emergency department if your symptoms get worse or if you develop any symptoms that are concerning to you. Prescriptions: New omeprazole 20 mg capsule,delayed release(DR/EC) 20 mg PO DAILY 30 Days Qty: 30 0RF No Action risperidone 1 mg tablet 1 mg PO BEDTIME paroxetine HCl 20 mg tablet 20 mg PO DAILY risperidone 0.5 mg tablet 0.5 mg PO BEDTIME ibuprofen 400 mg tablet 400 mg PO Q6H PRN (Reason: pain) cyclobenzaprine 5 mg tablet 5 - 10 mg PO BID PRN (Reason: pain) benzonatate 100 mg capsule 100 mg PO TID PRN (Reason: cough) capsaicin 0.025 % cream topical cetirizine 10 mg tablet 10 mg PO DAILY PRN (Reason: allergies) tizanidine 4 mg tablet 4 mg PO BEDTIME Print Language: Pakistani
[2023-08-12 00:43] LABS: IDNOW Serial# 6674DD1D; Strep A Nucleic Acid Negative (Negative)
[2023-08-12] MEDS: Ibuprofen 400 MG TABLET PO (01:10)
[2023-08-12 01:13] LABS: Influenza A PCR NEGATIVE (Negative); Influenza B PCR NEGATIVE (Negative); Resp Syncy Virus RNA Qual PCR NEGATIVE (Negative); SARS COV2 PCR INHOUSE NEGATIVE (Negative)
[2023-08-12] MEDS: Omeprazole 20 MG CAPSULE.DR PO (02:22)
[2023-08-12 02:26] VITALS: BP 130/72; PULSE 88; RESP 16; TEMP 36.8; O2SAT 96
== END 2023-08-12 02:28 | disposition home or self-care (01) ==
PROVIDERS: Physician Assistant Medical; Emergency Provider Emergency Medicine Emergency Medical Services
DX: K21.00 Gastro-esophageal reflux disease with esophagitis, without bleeding (principal)
CPT/HCPCS: 0241U; 71046; 87651; 99283; 99285

== ENCOUNTER 2024-01-15 08:52 | Outpatient (REF) | payer MEDICAID, SELFPAY ==
[2024-01-15 12:13] LABS: Alanine Aminotransferase 35 U/L (0-31); Alkaline Phosphatase 76 U/L (39-117); Anion Gap 13 (12-20); Aspartate Amino Transferase 34 U/L (5-31); Bilirubin Total 0.3 mg/dL (0.0-1.0); Blood Urea Nitrogen 15 mg/dL (9-16); Calcium 9.5 mg/dL (8.4-10.2); Carbon Dioxide 26 mmol/L (22-29); Chloride 103 mmol/L (96-108); Cholesterol 255 mg/dL (<200); Estimated Glomerular Filt Rate > 60; Glucose Random 103 mg/dL (60-115); HDL Cholesterol 52 mg/dL (>40); LDL Cholesterol Calculated 170 mg/dL (<100); Potassium 4.7 mmol/L (3.3-5.1); Sodium 137 mmol/L (135-145); Triglycerides 167 mg/dL (<150)
[2024-01-15 12:30] LABS: TSH reflex Free T4 0.31 uIU/mL (0.32-4.0)
[2024-01-15 12:56] LABS: HIV AB/AG Nonreactive (Nonreactive); HIV Num 1 0.04 S/CO (0.00-0.99); ~HepC Num1 0.23 S/CO (0.00-0.79); ~Hepatitis C Antibody Nonreactive (Nonreactive)
[2024-01-15 13:16] LABS: Free T4 (Free Thyroxine) 0.95 ng/dL (0.71-1.85)
[2024-01-17 10:59] LABS: RPR Rapid Plasma Reagin NON-REACTIVE (NON-REACTIVE)
== END 2024-01-15 08:53 | disposition home or self-care (01) ==
LOC: HO.HHCL 08:52
PROVIDERS: Visit Provider Nurse Practitioner Primary Care
DX: Z11.3 Encounter for screening for infections with a predominantly sexual mode of transmission (principal)
CPT/HCPCS: 36415; 80053; 80061; 84439; 84443; 86592; 86803; 87389

== ENCOUNTER 2024-05-19 12:08 | Outpatient (REF) | payer MEDICAID, SELFPAY ==
--- OUTSIDE RECORDS SUMMARY | 2024-05-19 13:16 | XMS_ITS | Encounter Summary ---
Author Organization [employer] Address [address] [place] [address] Care Team Providers Care Spanish Speaking Nanny Name Role Phone Carol Ann Shoshana CRANDALL Primary Care Provider [phone] Reason for Visit * Reason Comments Med Refill Encounter Details Date Type Department Care Team ([facility] st Contact Info) Description 05/01/2023 Refill [facility] [address] [place] [address] Carlos Gan FNP Social History Tobacco Use Types Packs/Day Years Used Date Smoking Tobacco: Never Passive Smoke Exposure: Never Smokeless Tobacco: Never Alcohol Use Standard Drinks/Week Comments Never 0 (1 standard drink = 0.6 oz pur e alcohol) Depression Answer Date Recorded Patient Health Questionnaire-9 Score 11 01/16/2023 Housing Stability Answer Date Recorded What is your housing situation today? I have nikhil torres 02/05/[address] you li ve. Do you have problems with any of the following? None of the above 02/05/2023 Food Insecurity Answer Date Recorded Within the past 12 months, y ou worried that your food would run out before you got money to buy more: Sometimes True 2022 Within the past 12 months,th e food you bought just didn't last and you didn't have enough money to get more: Sometimes True 02/05/2023 Transportation Answer Date Recorded In the past 12 months, has l ack of transportation kept you from medical appts, meetings, work or from getting things needed for daily living? No 02/05/2023 Utilities Answer Date Recorded In the past 12 months, has t he electric, gas, oil or water company threatened to shut off services in your home? No 02/05/2023 Depression Answer Date Recorded Patient Health Questionnaire-2 Score 3 01/16/2023 Comments Unknown Sex and Gender Information Value Date Recorded Sex Assigned at Female 02/06/2022 10:39 AM EDT Legal Sex Female 10:39 AM EDT Gender Identity Female 02/06/2022 10:39 AM EDT Sexual Orientation Choose not to disclose 2021 10:39 AM EDT documented as of this encounter Plan of Treatment Not on file documented as of this encounter Visit Diagnoses Not on filedocumented in this encounter Additional Health Concerns Assessment Noted Time PHQ-9 Depression Total Score: 11 023 10:58 AM EDT documented as of this encounter Care Teams Spanish Speaking Nanny Relationship Specialty Start Date End Date Shoshana Maharaj ANP [address] [place] [id number] PCP - General Family Medicine 02/21/21 documented as of this encounter
--- OUTSIDE RECORDS SUMMARY | 2024-05-19 13:16 | XMS_ITS | Clinical Summary ---
Author Organization [employer] Address [address] [facility] [address] [place] [address] Care Team Providers Care Surgery Assistant Name Role Phone Carol Ann Shoshana CRANDALL Primary Care Provider [phone] Allergies No known active allergies Medications * This document contains information received from the source organization and may not represent a complete record from that organization. naproxen (Naprosyn) 500 MG tabletIndicatio ns:Right foot pain Take 1 tablet (500 mg) by mouth every 12 (twelve) hours if needed for mild pain or moderate pain for up to 30 doses. To be taken with food 30 tablet 3 Active Diclofenac Sodium 1 % gelIndications: Rib pain on right side,Right foot pain APPLY TOPICALLY TO TO THE AFFECTED AREA TWICE DAILY NEEDED FOR PAIN 100 g 3 Active escitalopram (Lexapro) 20 MG tablet Take 1 tablet (20 mg) by mouth Once per day. 90 tablet 3 4 Active risperiDONE (RisperDAL) 3 MG tabletIndicatio ns:Major depressive disorder, recurrent, severe with psychotic features (CMS/HCC) Take 1 tablet (3 mg) by mouth at bedtime. 90 tablet 3 4 Active Active Problems Problem Noted Date Diagnosed Date Major depressive disorder with psychotic feature s 05/16/2022 Assessment & Plan (10/15/2023 9:27 AM EDT): Presented with auditory and visual hallucinations, nightmares. Now doing well, with improved sleep and hallucinations controlled. Will continue Lexapro 20 mg daily, Risperidone 3 mg at bedtime. Referring again for counseling. Since this provider will be retiring, patient is now referred back to PCP for further medication management. Call [facility] with any issues or concerns. All her questions were answered and I have wished her well. She agrees with the plan. Assessment & Plan (01/16/2023 11:37 AM EDT): Presented with auditory and visual hallucinations, nightmares. Improved sleep and hallucinations controlled, but depressive symptoms persist. She has been on Paxil 40 mg for many years. At this time will do an in-class switch. Stop the Paxil 40 mg. Start Lexapro 20 mg daily. Continue Risperidone 3 mg at bedtime. Referring again for counseling. F/U with in 1 month. She agrees with the plan. Assessment & Plan (11/30/2022 11:41 AM EDT): Presented with auditory and visual hallucinations, nightmares. Had done better with improved sleep and hallucinations controlled. Patient has been under increased stress leading to worsened symptoms. Was evaluated by Crisis, which was helpful, and she now will have counseling F/U. Feels current medications are fine for now, so will continue Paxil 40 mg daily, Risperidone 3 mg at bedtime. F/U with in 1 month. She agrees with the plan. Assessment & Plan (11/16/2022 1:24 PM EDT): Assessment: Patient with stressed, lack of motivation, isolation, anxiousness, oversleeping, little energy, decreased appetite. he lives with her daughter and the daughter's family. Currently working emergency department cleaning. Reported Hx of SI attempt more than 9 years ago in [place], by overdosing with pills. Yesterday was assessed by Crisis, due to not wanting to be around anymore, but stated is not that I want to . Patient will benefit from Ind. Therapy with CBT approach. At this time Livia Vitaly Mohan meets criteria for Visit Diagnoses: Problem List Items Addressed This Visit Other Major depressive disorder without psychotic features Patient ready to address current needs Yes Strengths include willing to seek treatment PLAN: 1. Follow up with [facility]: Not recommended for follow-up 2. Patient goal is to feel better 3. Behavioral Recommendations a. Ind. Therapy with CBT approach b. Keeping Med. Management appts c. Use of coping skills provided at least 2x/day for 6 months to develop the skills Assessment & Plan (10/23/2022 2:19 PM EDT): Presented with auditory and visual hallucinations, nightmares. Had done better with improved sleep and hallucinations controlled. Unfortunately symptoms have recently worsened again. Will increase now to Paxil 40 mg daily. Continue Risperidone 3 mg at bedtime. F/U with in 6-8 weeks. She agrees with the plan. We will give her the phone number of the agency so she can call to F/U on referral. Assessment & Plan (08/22/2022 1:43 PM EDT): Presented with auditory and visual hallucinations, nightmares. Doing better. Sleeping better and hallucinations controlled. Unfortunately has lost touch with her therapist and although she was encouraged to attempt to reach the therapist she requests a new referral. Continue Paxil 30 mg daily, Risperidone 3 mg at bedtime. F/U with in 6-8 weeks. She agrees with the plan. Assessment & Plan (07/11/2022 2:59 PM EDT): Presented with auditory and visual hallucinations, nightmares. Doing better. Sleeping better and hallucinations controlled. Continue Paxil 30 mg daily, Risperidone 3 mg at bedtime. F/U with therapist and with me in 6 weeks. She agrees with the plan. Assessment & Plan (06/13/2022 2:43 PM EST): Presented with auditory and visual hallucinations, nightmares. Sleeping better and hallucinations controlled, but anxiety and anhedonia persist. Will increase now to Paxil 30 mg daily. Continue Risperidone 3 mg at bedtime. Will consider counseling and call agencies as desired.. F/U 4 weeks. She agrees with the plan. Assessment & Plan (05/16/2022 2:17 PM EST): Presented with auditory and visual hallucinations, nightmares. Had done better with Risperidone 2 mg at bedtime, but again feeling depressed and not sleeping well. Will increase now to Risperidone 3 mg at bedtime to take 1 tablet only, every night (not prn). Continue Paxil 20 mg once daily, consider dose increase of that as well.. F/U 4 weeks. She agrees with the plan. History of COVID-19 05/04/2022 Obesity 05/04/2022 Resolved Problems Problem Noted Date Diagnosed Date Resolved Date Depression 05/04/2022 05/16/2022 Encounters * This document contains information received from the source organization and may not represent a complete record from that organization. Date Type Department Care Team Description 04/03/2024 Telephone [facility] [place] [address] Shoshana Maharaj ANP Appointment Request 03/28/2024 Telephone [facility] [place] [address] Shoshana Maharaj ANP Appointment Request 03/27/2024 1:00 PM EST Office Visit [facility] [address] Shoshana Maharaj ANP Major depressive disorder with psychotic features (CMS/HCC) (Primary Dx); Abnormal TSH; Acute cough; Class 2 severe obesity with serious comorbidity and body mass index (BMI) of 37.0 to 37.9 in adult, unspecified obesity type (CMS/HCC); Mixed hyperlipidemia 03/27/2024 Telephone [facility] [address] Shoshana Maharaj ANP Appointment Request 03/27/2024 Travel from Last 3 Months Immunizations Name Administration Dates Next Due Tdap 02/21/2021 Social History Tobacco Use Types Packs/Day Years Used Date Smoking Tobacco: Former Cigarettes Passive Smoke Exposure: Never Smokeless Tobacco: Never Tobacco Cessation:Counseling Given: Not Answered Alcohol Use Standard Drinks/Week Comments Never 0 (1 standard drink = 0.6 oz pur e alcohol) Depression Answer Date Recorded Patient Health Questionnaire-9 Score 11 10/15/2023 Patient Health Questionnaire-9 Score 11 10/15/2023 Last PHQ-9: Questionnaire Data Not on file 0 10/15/2023 Housing Stability Answer Date Recorded What is your housing situation today? I have nikhil torres 01/28/[address] you li ve. Do you have problems with any of the following? Water leaks 01/28/2024 Food Insecurity Answer Date Recorded Within the past 12 months, y ou worried that your food would run out before you got money to buy more: Often true 01/28/2024 Within the past 12 months,th e food you bought just didn't last and you didn't have enough money to get more: Often true Transportation Answer Date Recorded In the past 12 months, has l ack of transportation kept you from medical appts, meetings, work or from getting things needed for daily living? No 01/28/2024 Utilities Answer Date Recorded In the past 12 months, has t he electric, gas, oil or water company threatened to shut off services in your home? No 01/28/2024 Depression Answer Date Recorded Patient Health Questionnaire-2 Score 4 10/15/2023 Internet Access Answer Date Recorded Internet Access Q1 Yes 01/28/2024 Internet Access Q2 Not on file 01/28/2024 Comments Unknown Sex and Gender Information Value Date Recorded Sex Assigned at Female 02/06/2022 10:39 AM EDT Legal Sex Female 10:39 AM EDT Gender Identity Female 02/06/2022 10:39 AM EDT Sexual Orientation Choose not to disclose 2021 10:39 AM EDT Last Filed Vital Signs Vital Sign Reading Time Taken Comments Blood Pressure 122/75 03/27/2024 1:06 PM EST Pulse 91 03/27/2024 1:06 PM EST Temperature 36.7 ??C (98 ??F) 03/27/2024 1:06 PM EST Respiratory Rate 14 03/27/2024 1:06 PM EST Oxygen Saturation 97% 03/27/2024 1:06 PM EST Inhaled Oxygen Concentration - - Weight 101 kg (222 lb 9.6 oz) 03/27/2024 1:06 PM EST Height 165.1 cm (5' 5 ) 05/21/2023 3:27 PM EST Body Mass Index 37.04 05/21/2023 3:27 PM EST Plan of Treatment Health Maintenance Due Date Last Done Comments CT Colonography 1970 Colonoscopy 1970 Colorectal Cancer Screening 1970 FIT DNA/Cologuard 1970 FIT 1970 FOBT 1970 Sigmoidoscopy 1970 Hepatitis B Vaccines (1 of 3 - 19+ 3-dose series) 1989 Mammogram 2010 Pneumococcal Vaccine: 50+ Years (1 of 1 - PCV) 2020 Zoster Vaccines (1 of 2) 2020 COVID-19 Vaccine (4 - 2023-2 5 season) 2023 04/23/2021, 10/06/2020, 2020 Influenza Vaccine (#1) 2023 Pap Smear 01/20/2024 01/19/2021 Depression Monitoring (PHQ-9) 04/16/2024, 10/15/2023 Depression Screening 10/14/2024 10/15/2023, 10/15/2023 SDOH Screening 01/27/2025 01/28/2024 Alcohol/Substance Use Screening 03/27/2025 03/27/2024 Tobacco Screening 03/27/2025 03/27/2024 Cervical Cancer Screening 01/19/2026 HPV/Cotest 01/19/2026 01/19/2021 Lipid Panel 01/14/2029 01/15/2024, 11/14/2021 DTaP/Tdap/Td Vaccines (2 - T d or Tdap) 02/21/2031 02/21/2021 RSV Patients and Patients Aged 60 years or older (1 - 1-dose 75+ series) 2045 HIV Screening Completed 01/15/2024, 11/14/2021 Hepatitis C Screening Completed 01/15/2024 , 11/14/2021 HIB Vaccines Aged Out No longer eligi ble based on patient's age to complete this topic HPV Vaccines Aged Out No longer eligi ble based on patient's age to complete this topic Hepatitis A Vaccines Aged Out No long er eligible based on patient's age to complete this topic IPV Vaccines Aged Out No longer eligi ble based on patient's age to complete this topic Meningococcal Vaccine Aged Out No anuradha fabiana eligible based on patient's age to complete this topic Pneumococcal Vaccine: Pediatrics (0 to 5 Years) and At-Risk Patients (6 to 49) Years) Aged Out No longer eligible b ased on patient's age to complete this topic RSV under 20 months Aged Out No longe r eligible based on patient's age to complete this topic Rotavirus Vaccines Aged Out No longer eligible based on patient's age to complete this topic Procedures Procedure Name Priority Date/Time Associated Diagnosis Comments POCT INFLUENZA A (ID NOW RAPID MOLECULAR) Routine 03/27/2024 2:22 PM EST Acute cough POCT INFLUENZA B (ID NOW RAPID MOLECULAR) Routine 03/27/2024 2:22 PM EST Acute cough POCT COVID-19 AG SHERWOOD ID NOW Routine 03/27/2024 2:04 PM EST Acute cough HEPATITIS C AB W/REFL TO HCV RNA, QN, PCR Routine 01/15/2024 8:55 AM EDT Routine screening for STI (sexually transmitted infection) HIV 1/2 ANTIGEN/ANTIBODY, FOURTH GENERATION W/RFL Routine 01/15/2024 8:55 AM EDT Routine screening for STI (sexually transmitted infection) LIPID PANEL, STANDARD Routine 01/15/2024 8:55 AM EDT Routine screening for STI (sexually transmitted infection) HPV MRNA E6/E7 Routine 01/19/2021 3:57 PM EDT THINPREP IMAGING SYSTEM PAP Routine 01/19/2021 3:57 PM EDT from Last 3 Months or Most Recently Relevant to Health Maintenance Results * POCT Rapid Influenza B SHERWOOD ID NOW (03/27/2024 2:22 PM EST) Influenza B Negative Negative, Indeterminate [facility] QC Media Lot # [id number] [facility] Lot# Expiration Date [id number] [facility] Swab 03/27/2024 2:22 PM EST us Shoshana Maharaj ANP POINT OF CARE TEST ENTER/EDIT OR DERABLES Final Result [facility] [address] [place] [phone] * POCT Rapid Influenza A SHERWOOD ID NOW (03/27/2024 2:22 PM EST) Pathologist [facility] Influenza A Negative Negative, Indeterminate [facility] QC Media Lot # [id number] [facility] Lot# Expiration Date [facility] Swab 03/27/2024 2:22 PM EST Shoshana Maharaj ANP POINT OF CARE TEST ENTER/EDIT OR DERABLES Final Result Performing Organization Address [facility] Co de Phone Number [facility] [address] [place] [phone] * POCT Rapid Covid-19 SHERWOOD ID NOW (03/27/2024 2:04 PM EST) [facility] [address] Coronavirus Antigen PCR Negative Negative, Indeterminate, None Detected, Invalid, Specimen unsatisfactory for evaluation, Weakly Positive QC Media Lot # [id number] Lot# Expiration Date Swab 03/27/2024 2:04 PM EST Shoshana Maharaj [facility] POINT OF CARE TEST ENTER/EDIT OR DERABLES Final Result * Hepatitis C Antibody with Reflex to HCV, RNA, Quantitative, Real-Time PCR (01/15/2024 8:55 AM EDT) [facility] [address] Hepatitis C Antibody Nonreactive Nonreactive [facility] Comment:Antibodies to HCV no t detected; does not exclude early acuteHCV infection. Blood Venous blood specimen / Unknown 01/15/2024 8:55 AM EDT 01/15/2024 11:35 AM EDT Shoshana Maharaj [facility] LAB BLOOD ORDERABLES Final Resul t Performing Organization Address [facility] Co de Phone Number [facility] [address] [place] [phone] * HIV-1/2 Antigen and Antibodies, Fourth Generation, with Reflexes (01/15/2024 8:55 AM EDT) Pathologist [facility] HIV AB/AG Nonreactive Nonreactive [facility] Comment:HIV-1 p24 Ag and/or HIV-1/HIV-2 Ab not detected.A test result that is nonreactive does not exclude thepossibility of exposure to or infection with HIV-1 and/orHIV-2. Nonreactive results in this assay for individualswith prior exposure to HIV-1 and/or HIV-2 may be due toantigen and antibody levels that are below the limit ofdetection of this assay.The eyefactive HIV Ag/Ab Combo assay result andsupplemental assay results should be interpreted inconjunction with the patient's clinical presentation,history and other laboratory results. If the results areinconsistent with clinical evidence, additional testing issuggested to confirm the result. Blood Venous blood specimen / Unknown 01/15/2024 8:55 AM EDT 01/15/2024 11:35 AM EDT [facility] LAB BLOOD ORDERABLES Final Resul t [facility] [address] [place] [phone] * (ABNORMAL) Lipid Panel, Standard (01/15/2024 8:55 AM EDT) Triglycerides 167(H) <150 mg/dL [facility] Comment:Desirable Triglyceri de: less than 150 mg/dLBorderline High Triglyceride 150-199 mg/dLHigh Triglyceride: 200-499 mg/dLVery High Triglyceride: greater than or equal to 5OO mg/dL Cholesterol 255(H) <200 mg/dL [facility] Comment:Desirable Cholestero l: less than 200 mg/dLBorderline High Cholesterol: 200-239 mg/dLHigh Cholesterol: greater than 239 mg/dL LDL Cholesterol Calculated 170(H) <100 mg/dL [facility] Comment:Desirable LDL: less than 100 mg/dLNear Optimal/Above Optimal LDL: 110- 129 mg/dLBorderline High LDL: 130-159 mg/dLHigh LDL: 160-189 mg/dLVery High LDL: greater than or equal to 190 mg/dL HDL Cholesterol 52 >40 mg/dL [facility] Comment:Desirable HDL: great er than 40 mg/dL Note: This HDL assay may give artificially low results in patients with liver disease. Blood Venous blood specimen / Unknown 01/15/2024 8:55 AM EDT 01/15/2024 11:35 AM EDT Shoshana CRANDALL LAB BLOOD ORDERABLES Final Resul t Performing Organization Address [facility]/ZIP Co de Phone Number [facility] [address] [place] [phone] * THINPREP TIS PAP (01/19/2021 3:57 PM EDT) Clinical Information: None given [facility] COMMENT SEE COMMENT [facility] Comment: EXPLANATORY NOTE: ? The Pap is a screening test for cervical cancer. It is ?? not a diagnostic test and is subject to false negative ?? and false positive results. It is most reliable when a ?? satisfactory sample, regularly obtained, is submitted ?? with relevant clinical findings and history, and when ?? the Pap result is evaluated along with historic and ?? current clinical information. ?? COMMENT: This Pap test has been evaluated with computer assisted technology. [facility] Career Development Director : SEE COMMENT [facility] Comment: MSM, CT(ASCP) CT screening location: [address] ??[phone] Interpretation/R esult: Negative for intraepithelial lesion or malignancy. [facility] LMP: 01/26 [facility] Prev. BX: NONE GIVEN [facility] Prev. PAP: NONE [facility]IVEN [facility] SOURCE: None given [facility] Statement Of Adequacy: SEE COMMENT [facility] Comment: Satisfactory for evaluation. Endocervical/transformation zone component absent. 01/19/2021 3:57 PM EDT Liliya Rebolledo CNM LAB PATHOLOGY ORDERABLES Final Result Performing Organization Address [facility]/ZIP Co de Phone Number [facility] [address] * HPV mRNA E6/E7 (01/19/2021 3:57 PM EDT) HPV nRNA E6/E7 Not Detected Not Detected [facility] Comment: Methodology: School Traffic Supervisor-Mediated Amplification This assay detects E6/E7 viral messenger RNA (mRNA) from 14 high-risk HPV types (16,18,31,33,35,39,45,51,52,56,58,59,66,68). ? The analytical performance characteristics of this assay have been determined by [employer]. The modifications have not been cleared or approved by the FDA. This assay has been validated pursuant to the CLIA regulations and is used for clinical purposes. ?? For additional information, please refer to http://education.DesignMyNight/faq/TER987v9 (This link if provided for information/ educational purposes only.) 01/19/2021 3:57 PM EDT Liliya SULLIVAN LAB BLOOD ORDERABLES Carmela l Result [facility] [address] from Last 3 Months or Most Recently Relevant to Health Maintenance Insurance [place] [address] C3 Care Teams Surgery Assistant Relationship Specialty Start Date End Date Shoshana Maharaj ANP [address] [place] [phone] PCP - General Family Medicine 02/21/21
--- OUTSIDE RECORDS SUMMARY | 2024-05-19 13:16 | XMS_ITS | Encounter Summary ---
Author Organization [employer] Address [address] [place] [id number] Care Team Providers Care Immunohematologist Name Role Phone Shoshana Maharaj Primary Care Provider [phone] Reason for Visit * Reason Onset Date Comments Nurse Triage 11/15/2022 Appointment 11/16/2022 Appt Schedule fo r [facility] Encounter Details Date Type Department Care Team (Late st Contact Info) Description 11/15/2022 Telephone [facility] [address] [place] [address] Shoshana Maharaj ANP [address] [place] [address] Nurse Triage; Appointment (Appt Schedule for BH-[facility]) Social History Tobacco Use Types Packs/Day Years Used Date Smoking Tobacco: Never Passive Smoke Exposure: Never Smokeless Tobacco: Never Alcohol Use Standard Drinks/Week Comments Never 0 (1 standard drink = 0.6 oz pur e alcohol) PHQ-2 Answer Date Recorded Patient Health Questionnaire-2 Score 4 11/16/2022 Comments Unknown Sex and Gender Information Value Date Recorded Sex Assigned at Female 02/06/2022 10:39 AM EDT Legal Sex Female 10:39 AM EDT Gender Identity Female 02/06/2022 10:39 AM EDT Sexual Orientation Choose not to disclose 2021 10:39 AM EDT documented as of this encounter Miscellaneous Notes * Telephone Encounter - Oma Hall MA - 11/16/2022 3:56 PM EDT T/C placed to pt regarding message below. Pt agrees to schedule a sonner appt for psychopharm clinic for 11/30/22 @ 10:45am. Pt was contacted for a BE today. BHI/clinician request a sooner appt. * Telephone Encounter - Thea Bergeron RN - 11/15/2022 9:08 AM EDT Second attempt to reach patient to triage regarding below. No answer, LVM to return call to [facility] triage line. Call placed to [employer] at [phone], requested wellness check for patient due to nature of call below and concerns for patient safety. Advised by dispatch that an officer will besent to the patients home for wellness check. Will call back as needed. Will send to PCP , team andBH team (Carlos MANCILLA) to inform. * Telephone Encounter - Thea Bergeron RN - 11/15/2022 9:07 AM EDT Protocol Used: No Contact or Duplicate Contact Call (Adult) Protocol-Based Disposition: No Contact Call Positive Triage Questions: * No answer. First attempt to contact caller. Follow-up call scheduled within 15 minutes. * Message left on identified voicemail * All higher-acuity triage questions were negative * Telephone Encounter - Jessica Miller - 11/15/2022 8:51 AM EDT Symptoms: Anxiety or Panic Attack, Depression Outcome: Schedule an urgent appointment (within 4 hours) or talk to a nurse or provider soon Reason: Getting worse (bad thoughts to hurt herself) The caller accepted this outcome Patient disconnected call while writer producer tried to get triage nurse on the line. Patient speaks syriac documented in this encounter Plan of Treatment Not on file documented as of this encounter Visit Diagnoses Not on filedocumented in this encounter Additional Health Concerns Assessment Noted Time PHQ-9 Depression Total Score: 14 023 1:47 PM EDT documented as of this encounter Care Teams Immunohematologist Relationship Specialty Start Date End Date Shoshana Maharaj ANP [address] [place] [address] PCP - General Family Medicine 02/21/21 documented as of this encounter
--- OUTSIDE RECORDS SUMMARY | 2024-05-19 13:16 | XMS_ITS | Clinical Summary ---
Author Organization [facility] ity Address [address] [place] [address] Care Team Providers Care Ob/Gyn Physician Name Role Phone Shoshana Maharaj NP Primary Care Provider [phone] Social History Tobacco Use Types Packs/Day Years Used Date Smoking Tobacco: Never Assessed Comments Unknown Sex and Gender Information Value Date Recorded Sex Assigned at Not on file Legal Sex Female 5:59 PM EDT Gender Identity Not on file Sexual Orientation Not on file Last Filed Vital Signs Vital Sign Reading Time Taken Comments Blood Pressure - - Pulse - - Temperature - - Respiratory Rate - - Oxygen Saturation - - Inhaled Oxygen Concentration - - Weight 97.4 kg (214 lb 12.8 oz) 07/24/2023 9:26 AM EDT Height 160 cm (5' 3 ) 07/24/2023 9:26 AM EDT Body Mass Index 38.05 07/24/2023 9:26 AM EDT Plan of Treatment Health Maintenance Due Date Last Done Comments Breast Cancer Screening 1970 DTaP,Tdap,and Td Vaccines (1 - Tdap) 1977 Hepatitis B Vaccines (1 of 3 - 19+ 3-dose series) 1989 Cervical Cancer Screening: P ap Smear 09/16/1991 Pneumococcal Vaccine: 50+ Ye ars (1 of 1 - PCV) 2020 Zoster Vaccines (1 of 2) 2020 COVID-19 Vaccine (2023-2 5 season) 2023 Influenza Vaccine (#1) 2023 Colorectal Cancer Screening: Colonoscopy 03/04/2024 Depression Screening 03/04/2024 HIV Screening 03/04/2024 Hepatitis C Screening 03/04/2024 Social Influencers of Health Screening 03/04/2024 HIB Vaccines Aged Out No longer eligi [...] on patient's age to complete this topic MMR Vaccines Aged Out No longer eligi ble based on patient's age to complete this topic Meningococcal ACWY Vaccine Aged Out N o longer eligible based on patient's age to complete this topic Meningococcal B Vacine Aged Out No lo nger eligible based on patient's age to complete this topic Pneumococcal Vaccine: Pediat rics (0 to 5 Years) and At-Risk Patients (6 to 64 Years) Aged Out No longer eligible b ased on patient's age to complete this topic RSV Immunization Patients Un kiran 20 months Aged Out No longer eligible b ased on patient's age to complete this topic Varicella Vaccines Aged Out No longer eligible based on patient's age to complete this topic Care Teams Ob/Gyn Physician Relationship Specialty Start Date End Date Shoshana Maharaj NP [address] [place] [id number] PCP - General 05/24/23
[2024-05-19 13:59] LABS: TSH reflex Free T4 0.97 uIU/mL (0.32-4.0)
[2024-05-20 21:48] LABS: Thyroid Peroxidase Antibodies 1 IU/mL (<9)
== END 2024-05-19 12:09 | disposition home or self-care (01) ==
LOC: HO.HHCL 12:08
PROVIDERS: Visit Provider Nurse Practitioner Primary Care
DX: R79.89 Other specified abnormal findings of blood chemistry (principal)
CPT/HCPCS: 36415; 84443; 86376

== ENCOUNTER 2025-02-09 10:05 | Outpatient (REF) | payer MEDICAID, SELFPAY ==
--- NOTE | ~2025-02-09 | XR_ITS ---
EXAMINATION: XR SHOULDER, LEFT CLINICAL INFORMATION: left shoudler tendinosis COMPARISON: None available. TECHNIQUE: AP external rotation, Grashey, scapular Y, and axillary views of the left shoulder. FINDINGS: Normal bone mineralization. No fracture, dislocation, or suspicious bone lesion. Normal alignment. The glenohumeral joint demonstrates mild to moderate degenerative arthritis. The AC joint demonstrates mild spurring. There is a type II acromion. No undersurface spurring. The subacromial space is preserved. There is abundant amorphous calcification in the region of the infraspinatus tendon abutting the footplate attachment. Remainder of the soft tissue and bony structures appear normal. XR/XR shoulder LT min 2V IMPRESSION: 1. No acute bony findings of the left shoulder. 2. Moderate calcific tendinopathy of the infraspinatus tendon. 3. Mild to moderate degenerative arthritis of the glenohumeral joint. Electronically signed by: Shiva Edmondson MD 02/09/2025 10:58 AM [facility]
--- OUTSIDE RECORDS SUMMARY | 2025-02-09 09:20 | XMS_ITS | Encounter Summary ---
Author Organization [employer] Address [address] [place] [address] Care Team Providers Care Production Coordinator Name Role Phone Shoshana Maharaj Primary Care Provider [phone] Reason for Visit * Reason Comments left shoulder pain Encounter Details Date Type Department Care Team ([facility] st Contact Info) Description 02/09/2025 9:20 AM EST Office Visit [facility] [address] [place] [address] Biceps tendinosis of left shoulder (Primary Dx); Pectoralis major tendinitis, left Social History Tobacco Use Types Packs/Day Years Used Date Smoking Tobacco: Former Cigarettes Passive Smoke Exposure: Never Smokeless Tobacco: Never Alcohol Use Standard Drinks/Week Comments Never 0 (1 standard drink = 0.6 oz pur e alcohol) Depression Answer Date Recorded Patient Health Questionnaire-9 Score 17 12/30/2024 Patient Health Questionnaire-9 Score 17 12/30/2024 Last PHQ-9: Questionnaire Data Not on file 0 12/30/2024 Housing Stability Answer Date Recorded What is your housing situation today? I have housing today, but I am worried about losing housing in the future 12/30/[address] you li ve. Do you have problems with any of the following? None of the above 12/30/2024 Food Insecurity Answer Date Recorded Within the [...] to shut off services in your home? Yes 12/30/2024 Depression Answer Date Recorded Patient Health Questionnaire-2 Score 3 12/30/2024 Internet Access Answer Date Recorded Internet Access Q1 Yes 01/28/2024 Internet Access Q2 Not on file 01/28/2024 Comments Unknown Sex and Gender Information Value Date Recorded Sex Assigned at Female 02/06/2022 10:39 AM EDT Legal Sex Female 10:39 AM EDT Gender Identity Female 02/06/2022 10:39 AM EDT Sexual Orientation Choose not to disclose 2021 10:39 AM EDT documented as of this encounter Last Filed Vital Signs Vital Sign Reading Time Taken Comments Blood Pressure 122/77 02/09/2025 9:13 AM EST Pulse 85 02/09/2025 9:13 AM EST Temperature 36.4 C (97.5 F) 02/09/2025 9:13 AM EST Respiratory Rate 18 02/09/2025 9:13 AM EST Oxygen Saturation 99% 02/09/2025 9:13 AM EST Inhaled Oxygen Concentration - - Weight 78.3 kg (172 lb 9.6 oz) 02/09/2025 9:13 A M EST Height 160 cm (5' 3 ) 02/09/2025 9:13 AM EST Body Mass Index 30.57 02/09/2025 9:13 AM EST documented in this encounter Miscellaneous Notes * Patient Education Note - Ines Treviño MD - 02/09/2025 2:41 PM EST Images from the original note were not included. Patient Education Table of Contents Ejercicios despu?s de la reparaci?n del manguito rotador: amplitud del movimiento y elongaci?n (Exercises After Rotator Cuff Repair: Range of Motion and Stretching) To view videos and all your education online visit, [email or web address] or scan this QR code with your smartphone. Access to this content will in one year. Ejercicios despu?s de la reparaci?n del manguito rotador: amplitud del movimiento y elongaci?n Exercises After Rotator Cuff Repair: Range of Motion and Stretching Introducci?n Los ejercicios para el hombro pueden ayudarlo a recuperarse despu?s de mis lesi?n. Cody solo los ejercicios que le hayan indicado. Aseg?rese de comprender c?mo hacer los ejercicios de manera vincent. Siga los pasos que se describena continuaci?n. Es normal sentir molestias leves. Det?ngase si siente dolor o el dolor empeora. No comience estos ejercicios hasta que el m?dico se lo indique. Ejercicios de elongaci?n y amplitud de movimiento Estos ejercicios precalientan los m?sculos y las articulaciones. Pueden mejorar la movilidad y la flexibilidad del hombro. La amplitud de movimiento significa cu?nto puede moverse mis parte del cuerpo. En los ejercicios activos, se usan los m?sculos de los brazos para realizar el trabajo. P?ndulo del hombro En lalitha ejercicio, el brazo lesionado se carolann colgando hacia el suelo y luego se lo balancea tristian el p?ndulo de un reloj. 1. P?rese cerca de mis rojas o encimera de la que pueda sostenerse para mantener el equilibrio. Incl?nese hacia adelante desde la cintura y deje caer el brazo renetta/derecho. Use el otro brazopara sostenerse y ayudar a mantener el equilibrio. Relaje los m?sculos del brazo y el hombro renetta/derecho, y mueva la cadera y el tronco de modo que el brazo renetta/derecho se balancee libremente. El brazo debe balancearse por el movimiento del cuerpo, no por la fuerza de los m?sculos del brazo o el?hombro. Contin?e moviendo las caderas y el tronco de modo que el brazo se balancee en las siguientes direcciones, tristian se lo haya indicado el m?dico: De lado a lado. Hacia adelante y hacia atr?s. En c?rculos, en el sentido de las agujas del reloj y en sentido contrario. Vuelva lentamente a la posici?n inicial. Repita veces. Cody lalitha ejercicio ?veces por d?a. Flexi?n del hombro, sentado Lalitha ejercicio a veces se denomina deslizamiento sobre mis rojas. En lalitha ejercicio, debe deslizar el brazo hacia carmen del cuerpo hasta sentir un estiramiento en el hombro?lesionado. 1. Si?ntese en mis silla estable de modo que el antebrazo renetta/derecho pueda apoyarse en mis superficie plana. El codo debe descansar a mis altura en la que la parte superior del brazo est?? junto al cuerpo. Mantenga el hombro renetta/derecho relajado, incl?nese hacia adelante desde la cintura y deje quela mano se deslice hacia adelante (flexi?n). Det?ngase cuando sienta un estiramiento en el hombro ocuando llegue al ?ngulo recomendado por el m?dico. Mantenga esta posici?n josefina segundos. Vuelva a la posici?n inicial lentamente. Repita veces. Cody lalitha ejercicio ?veces por d?a. Abducci?n del hombro, activa-asistida Necesitar?? un rosalind?n, un yoel de escoba o un objeto similar para ayudarse (asistir) a fin de hacereste ejercicio. 1. Acu?stese boca arriba. Esta es la posici?n de mar?bito supino. Sostenga un yoel de escoba, un rosalind?n o un objeto similar. Coloque las fabian separadas a mis distancia un poco mayor que el ancho de diego hombros. La mano izquierda/derecha debe estar con la garcia hacia arriba, y la otra mano debe estar con la garcia hacia abajo. Manteniendo el hombro relajado, empuje el objeto para levantar el brazo renetta/derecho a un costado del cuerpo (abducci?n) y luego por encima de la dariana. Use la otra mano para ayudar a rehabilitation program manager el yoel. Det?ngase cuando sienta un estiramiento en el hombro o cuando llegue al ?ngulo recomendado porel m?dico. Evite encoger el hombro mientras levanta el brazo. Mantenga los om?platos juntos, ll?velos hacia elcentro de la espalda. Mantenga esta posici?n josefina segundos. Vuelva a la posici?n inicial lentamente. Repita veces. Cody lalitha ejercicio ?veces por d?a. Flexi?n del hombro, activa-asistida 1. Acu?stese boca arriba. Puede flexionar las rodillas para estar c?modo. Sostenga un yoel de escoba, un rosalind?n o un objeto similar de modo que las fabian est?n aproximadamente a la distancia del ancho de los hombros. Las anika deben apuntar hacia abajo, en direcci?n a lospies. Levante el brazo renetta/derecho sobre la dariana y hacia atr?s de la dariana, en direcci?n al suelo (flexi?n). Use la otra mano para ayudarse (activa- asistida). Det?ngase cuando sienta un estiramiento en el hombro o cuando llegue al ?ngulo recomendado por el m?dico. Mantenga esta posici?n josefina segundos. Use el yoel y el otro brazo tristian ayuda para que el brazo renetta/derecho regrese a la posici?n inicial. Repita veces. Cody lalitha ejercicio ?veces por d?a. Rotaci?n externa 1. Si?ntese en mis silla estable que no tenga apoyabrazos o p?ngase de pie. Coloque un objeto blando, tristian mis toalla doblada o mis pelota lenny?a, debajo la iva superior delbrazo renetta/derecho. Sostenga un yoel de escoba, un rosalind?n o un objeto similar con las anika hacia abajo, en direcci?n al suelo. Flexione los codos a 90?grados (?ngulo recto) y mantenga las fabian a mis distancia aproximada del ancho de los hombros. Empuje el rosalind?n hacia el lado renetta/derecho. Mantenga el brazo renetta/derecho flexionado. [place] sam?? rotar el antebrazo renetta/derecho en direcci?n contraria a kenny cuerpo (rotaci?n externa). Mantenga esta posici?n josefina segundos. Vuelva a la posici?n inicial lentamente. Repita veces. Cody lalitha ejercicio ?veces por d?a. Esta informaci?n no tiene tristian fin reemplazar el consejo del m?dico. Aseg?rese de hacerle al m?dicocualquier pregunta que tenga. Document Released: 2024-03-26 Document Updated: 2024-03-26 Document Reviewed: 2024-03-26 Elsevier Patient Education ? 2024 [employer]. * Patient Education Note - Ines Treviño MD - 02/09/2025 2:39 PM EST Images from the original note were not included. Patient Education Table of Contents Tendinitis del manguito rotador (Rotator Cuff Tendinitis) To view videos and all your education online visit, [email or web address] or scan this QR code with your smartphone. Access to this content will in one year. Tendinitis del manguito rotador Rotator Cuff Tendinitis La tendinitis del manguito rotador es la inflamaci?n de los tendones del manguito rotador. Los tendones son bandas mendez, similares a cordones, que conectan los m?sculos con los huesos. El manguitorotador es el conjunto de todos los m?sculos y tendones que conectan el brazo al hombro. El manguito rotador sostiene la dariana del h?artem, el hueso de la parte superior del brazo, en el hueco del om?plato (esc?pula). Esta afecci?n puede provocar mis rotura de larga duraci?n (cr?joey). La rotura puede ser parcial o completa. ?Cu?les son las causas? Generalmente, la causa de esta afecci?n es el uso excesivo del manguito rotador. ?Qu?? incrementa el riesgo? Es m?s probable que esta afecci?n se presente en deportistas o personas que en kenny trabajo usan los hombros o extienden los brazos por encima de la dariana con frecuencia. Estos pueden incluir actividades tristian las siguientes: Tenis. B?isbol o s?ftbol. Nataci?n. Trabajo de construcci?n. Trabajo de pintura. ?Cu?les son los signos o s?ntomas? Los s?ntomas de esta afecci?n incluyen: Dolor que se extiende (irradia) desde el hombro hasta la parte superior del brazo. Hinchaz?n y dolor a la palpaci?n en la iva anterior del hombro. Dolor al safe deposit box rental clerk, tirar o levantar el brazo por encima de la dariana. Dolor al bajar el brazo desde encima de la dariana. Dolor leve en el hombro al estar en reposo. Aumento del dolor en el hombro josefina la noche. Dificultad para colocar el brazo detr?s de la espalda. ?C?mo se diagnostica? Esta afecci?n se diagnostica mediante un examen f?sico y los antecedentes m?dicos. Se pueden realizar varias pruebas para confirmar el diagn?stico, por ejemplo: Radiograf?as. Tomograf?a computarizada (TC). Resonancia magn?zoya (RM). Ecograf?a. ?C?mo se trata? El tratamiento depende de la gravedad de la afecci?n. En casos no fernandez graves, el tratamiento puede incluir: Reposo. [place] se puede lograr con un cabestrillo que mantiene el hombro fijo (inmovilizaci?n). El m?dico tambi?n puede recomendarle que evite realizar actividades que requieran levantar el brazo por encima de la dariana. Aplicar hielo en el hombro. Medicamentos antiinflamatorios, tristian aspirina o ibuprofeno. Cuando los casos son m?s graves, el tratamiento puede incluir: Fisioterapia. Inyecciones de corticoesteroides. Cirug?a. Siga estas indicaciones en kenny casa: Si tiene un cabestrillo extra?ble: ?selo tristian se lo haya indicado el m?dico. Qu?teselo solamente tristian se lo haya indicado el m?dico. Controle la piel alrededor del cabestrillo todos los d?as. Informe al m?dico acerca de cualquier inquietud. Afloje el cabestrillo si los dedos de la mano se le entumecen, siente hormigueo o se le enfr?an o se tornan de color jef. Mantenga el cabestrillo limpio y seco. Si el cabestrillo no es impermeable: ? No deje que se moje. ? Qu?teselo tristian se lo haya indicado el m?dico cuando tome un ba?o de inmersi?n o mis ducha. Control del dolor, la rigidez y la hinchaz?n Aplique hielo sobre la iva lesionada si se lo indican. ? Si tiene un cabestrillo desmontable, qu?teselo tristian se lo haya indicado el m?dico. ? Ponga el hielo en mis bolsa pl?stica. ? Coloque mis toalla entre la piel y la bolsa. ? Aplique el hielo josefina 20?minutos, 2 o 3?veces por d?a. ? Si la piel se le pone de color ramirez brillante, retire el hielo de inmediato para evitar da?os en la piel. El riesgo de da?o es mayor si no puede sentir dolor, calor o fr?o. Mueva los dedos con frecuencia para reducir la rigidez y la hinchaz?n. Cuando est?? sentado o acostado, levante (eleve) la iva lesionada por encima del nivel del coraz?n. ? Busque mis posici?n c?moda para dormir o duerma sobre un sill?n reclinable, si fuera posible. Actividad Mantenga el hombro en reposo tristian se lo haya indicado el m?dico. Preg?ntele al m?dico cu?ndo es seguro conducir si tiene un cabestrillo en el brazo. Retome diego actividades normales tristian se lo haya indicado el m?dico. Preg?ntele al m?dico qu?? actividades son seguras para usted. Cody ejercicios o elongue tristian se lo haya indicado el m?dico o el fisioterapeuta. Si hace tareas repetitivas que implican levantar los brazos por encima de la dariana, tome descansosbreves y realice ejercicios de estiramiento tristian se lo haya indicado el m?dico. Indicaciones generales No consuma yehuda?n producto que contenga nicotina o tabaco. Estos productos incluyen cigarrillos, tabaco para mascar y aparatos de vapeo, tristian los cigarrillos electr?nicos. Estos pueden retrasar la recuperaci?n. Si necesita ayuda para dejar de consumir estos productos, consulte al m?dico. Use los medicamentos de venta juan y los recetados solo tristian se lo haya indicado el m?dico. Comun?quese con un m?dico si: El dolor empeora. Siente un dolor nuevo en el brazo, las fabian o los dedos. El dolor no se aston con medicamentos ni mejora despu?s de 6 semanas de tratamiento. Tiene la sensaci?n de un crujido cuando mueve el hombro en ciertos sentidos. Oye el rasheed de un chasquido despu?s de usar el hombro y va seguido de dolor y debilidad intensos. El brazo, la mano o los dedos est?n adormecidos o siente hormigueos. Solicite ayuda de inmediato si: El brazo, la mano o los dedos est?n hinchados, doloridos o se gail blancos o azules. Esta informaci?n no tiene tirstian fin reemplazar el consejo del m?dico. Aseg?rese de hacerle al m?dicocualquier pregunta que tenga. Document Released: 2009-07-12 Document Updated: 2022-12-12 Document Reviewed: 2022-12-12 DAXKO Patient Education ? 2024 [employer]. * Assessment & Plan Note - Ines Treviño MD - 02/09/2025 10:21 AM EST Associated Problem(s): Biceps tendinosis of left shoulder - Prescribed meloxicam once daily for 2 weeks, Advised acetaminophen (Tylenol) as needed for pain. - Provided shoulder exercises to improve mobility and strength. - Referred to physical therapy. Follow-up as needed based on response to treatment. documented in this encounter Plan of Treatment Not on file documented as of this encounter Procedures Procedure Name Priority Date/Time Associated Diagnosis Comments XR SHOULDER 2+ VIEWS LEFT Routine 02/09/2025 10:32 AM EST Biceps tendinosis of left shoulder documented in this encounter Results * XR Shoulder 2+ Views Left (02/09/2025 10:32 AM EST) Anatomical Region Laterality Modality Upper Extremities, Shoulder Left Radi ographic Imaging 02/09/2025 10:3 2 AM EST Narrative 02/09/2025 11:01 AM EST [facility] [address] [place] [address] XRay Report Signed Patient: Livia Titus R#: [id number] : 1970 Acct:[id number] Age/Sex: 54 / F ADM Date: 02/09/25 Loc: HO.HHCX Attending Dr: Ines Treviño MD Ordering Physician: Ines Treviño MD Date of Service: 02/09/25 Procedure(s): XR shoulder LT min 2V Accession Number(s): [id number] cc: Ines Treviño MD Reason for Exam: left shoudler tendinosis EXAMINATION: XR SHOULDER, LEFT CLINICAL INFORMATION: left shoudler tendinosis COMPARISON: None available. TECHNIQUE: AP external rotation, Grashey, scapular Y, and axillary views of the left shoulder. FINDINGS: Normal bone mineralization. No fracture, dislocation, or suspicious bone lesion. Normal alignment. The glenohumeral joint demonstrates mild to moderate degenerative arthritis. The AC joint demonstrates mild spurring. There is a type II acromion. No undersurface spurring. The subacromial space is preserved. There is abundant amorphous calcification in the region of the infraspinatus tendon abutting the footplate attachment. Remainder of the soft tissue and bony structures appear normal. XR/XR shoulder LT min 2V IMPRESSION: 1. No acute bony findings of the left shoulder. 2. Moderate calcific tendinopathy of the infraspinatus tendon. 3. Mild to moderate degenerative arthritis of the glenohumeral joint. Electronically signed by: Shiva Edmondson MD 02/09/2025 10:58 AM EST Dictated By: Shiva Edmondson MD Signed By: <Electronically signed by Shiva Edmondson MD in OV> 02/09/25 1058 DD/ 31 TD/TT: 02/09/25 105 Tool Technician: Procedure Note Graemeotjamesdonter, Image - 02/09/[address] [address] XRay Report Signed Patient: Sarbjit Titus R#: [id number] : 1970Acct:[id number] Age/Sex: 54 / FADM Date: 02/09/25 Loc: HO.HHCX Attending Dr: Ines Treviño MD Ordering Physician: Ines Treviño MD Date of Service: 02/09/25 Procedure(s): XR shoulder LT min 2V Accession Number(s): [id number] cc: Ines Treviño MD Reason for Exam: left shoudler tendinosis EXAMINATION: XR SHOULDER, LEFT CLINICAL INFORMATION: left shoudler tendinosis COMPARISON: None available. TECHNIQUE: AP external rotation, Grashey, scapular Y, and axillary views of the left shoulder. FINDINGS: Normal bone mineralization. No fracture, dislocation, or suspicious bone lesion. Normal alignment. The glenohumeral joint demonstrates mild to moderate degenerative arthritis. The AC joint demonstrates mild spurring. There is a type II acromion. No undersurface spurring. The subacromial space is preserved. There is abundant amorphous calcification in the region of the infraspinatus tendon abutting the footplate attachment. Remainder of the soft tissue and bony structures appear normal. XR/XR shoulder LT min 2V IMPRESSION: 1. No acute bony findings of the left shoulder. 2. Moderate calcific tendinopathy of the infraspinatus tendon. 3. Mild to moderate degenerative arthritis of the glenohumeral joint. Electronically signed by: Shiva Edmondson MD 02/09/2025 10:58 AM EST Dictated By: Shiva Edmondson MD Signed By: <Electronically signed by Shiva Edmondson MD in OV> 02/09/25 1058 DD/ 1032 TD/TT: 02/09/25 1054 Tool Technician: us Ines Treviño MD IMG XR PROCEDURES Edited Result - Final documented in this encounter Visit Diagnoses Diagnosis Biceps tendinosis of left shoulder- Primary Pectoralis major tendinitis, left documented in this encounter Additional Health Concerns Assessment Noted Time PHQ-9 Depression Total Score: 17 025 9:07 AM EDT documented as of this encounter Care Teams Production Coordinator Relationship Specialty Start Date End Date Shoshana Maharaj ANP [address] [place] [id number] PCP - General Family Medicine 02/21/21 documented as of this encounter
--- OUTSIDE RECORDS SUMMARY | 2025-02-09 12:03 | XMS_ITS | Encounter Summary ---
Author Organization [employer] Address [address] [facility] [address] [place] [address] Care Team Providers Care Computational Sciences Professor Name Role Phone Carol Ann Shoshana CRANDALL Primary Care Provider [phone] Reason for Visit * Reason Comments Med Refill Encounter Details Date Type Department Care Team ([facility] st Contact Info) Description 05/01/2023 Refill [facility] [address] [place] [address] Carlos Gan FNP Social History Tobacco Use [...] documented as of this encounter Care Teams Computational Sciences Professor Relationship Specialty Start Date End Date Shoshana Maharaj ANP [address] [place] [address] PCP - General Family Medicine 02/21/21 documented as of this encounter
--- OUTSIDE RECORDS SUMMARY | 2025-02-09 12:03 | XMS_ITS | Clinical Summary ---
Author Organization [employer] Address [address] [facility] [address] [place] [address] Care Team Providers Care Customer Assistance Representative Name Role Phone Shoshana Maharaj Primary Care Provider [phone] Allergies No known active allergies Medications * This document contains information received from the source organization and may not represent a complete record from that organization. naproxen (Naprosyn) 500 MG tabletIndications :Right foot pain Take 1 tablet (500 mg) by mouth every 12 (twelve) hours if needed for mild pain or moderate pain for up to 30 doses. To be taken with food 30 tablet 3 Active Diclofenac Sodium 1 % gelIndications:Ri b pain on right side,Right foot pain APPLY TOPICALLY TO TO THE AFFECTED AREA TWICE DAILY NEEDED FOR PAIN 100 g 3 Active Tirzepatide-Weigh t Management (Zepbound) 7.5 MG/0.5ML solution auto-injectorIndi cations:Class 3 severe obesity with serious comorbidity and body mass index (BMI) of 40.0 to 44.9 in adult, unspecified obesity type (HCC) Inject 0.5 mL (7.5 mg) under the skin 1 (one) time per week. 2 mL 2 5 Active albuterol 108 (90 Base) MCG/ACT inhalerIndication s:Mild intermittent reactive airway disease without complication Take 1-2 puffs every 4-6 hours as needed for cough/SOB 6.7 g 1 5 Active escitalopram (Lexapro) 20 MG tablet Take 1 tablet (20 mg) by mouth Once per day. 90 tablet 3 5 Active meloxicam (Mobic) 15 MG tablet Take 1 tablet (15 mg) by mouth Once per day. 30 tablet 5 02/10/20 26 Active acetaminophen (Tylenol Extra Strength) 500 MG tablet Take 1 tablet (500 mg) by mouth every 6 (six) hours if needed for mild pain. 120 tablet 5 03/11/20 25 Active Active Problems Problem Noted Date Diagnosed Date Biceps tendinosis of left shoulder 02/09/2025 Assessment & Plan (02/09/2025 10:21 AM EST): - Prescribed meloxicam once daily for 2 weeks, Advised acetaminophen (Tylenol) as needed for pain. - Provided shoulder exercises to improve mobility and strength. - Referred to physical therapy. Follow-up as needed based on response to treatment. Pectoralis major tendinitis, left 02/09/2025 Reactive airway disease without complication Macromastia 12/30/2024 Mixed hyperlipidemia 06/23/2024 Moderate major depression (CMS/HCC) 05/16/2022 Assessment & Plan (12/30/2024 11:03 AM EDT): >>ASSESSMENT AND PLAN FOR MAJOR DEPRESSIVE DISORDER WITH PSYCHOTIC FEATURES (CMS/HCC) WRITTEN ON 05/16/2022 2:17 PM BY LAURENT CANALES Presented with auditory and visual hallucinations, nightmares. [...] agrees with the plan. Assessment & Plan (12/30/2024 11:03 AM EDT): >>ASSESSMENT AND PLAN FOR MAJOR DEPRESSIVE DISORDER WITH PSYCHOTIC FEATURES (CMS/HCC) WRITTEN ON 06/13/2022 2:43 PM BY LAURENT CANALES Presented with auditory and visual hallucinations, nightmares. Sleeping better and hallucinations controlled, but anxiety and anhedonia persist. Will increase now to Paxil 30 mg daily. Continue Risperidone 3 mg at bedtime. Will consider counseling and call agencies as desired.. F/U 4 weeks. She agrees with the plan. Assessment & Plan (12/30/2024 11:03 AM EDT): >>ASSESSMENT AND PLAN FOR MAJOR DEPRESSIVE DISORDER WITH PSYCHOTIC FEATURES (CMS/HCC) WRITTEN ON 07/11/2022 2:59 PM BY SUSAN CANALESP Presented with auditory and visual hallucinations, nightmares. Doing better. Sleeping better and hallucinations controlled. Continue Paxil 30 mg daily, Risperidone 3 mg at bedtime. F/U with therapist and with me in 6 weeks. She agrees with the plan. Assessment & Plan (12/30/2024 11:03 AM EDT): >>ASSESSMENT AND PLAN FOR MAJOR DEPRESSIVE DISORDER WITH PSYCHOTIC FEATURES (CMS/HCC) WRITTEN ON 08/22/2022 1:43 PM BY SUSAN CANALESP Presented with auditory and visual hallucinations, nightmares. Doing better. Sleeping better and hallucinations controlled. Unfortunately has lost touch with her therapist and although she was encouraged to attempt to reach the therapist she requests a new referral. Continue Paxil 30 mg daily, Risperidone 3 mg at bedtime. F/U with in 6-8 weeks. She agrees with the plan. Assessment & Plan (12/30/2024 11:03 AM EDT): >>ASSESSMENT AND PLAN FOR MAJOR DEPRESSIVE DISORDER WITH PSYCHOTIC FEATURES (CMS/HCC) WRITTEN ON 10/23/2022 2:19 PM BY SUSAN CANALESP Presented with auditory and visual hallucinations, nightmares. [...] to F/U on referral. Assessment & Plan (12/30/2024 11:03 AM EDT): >>ASSESSMENT AND PLAN FOR MAJOR DEPRESSIVE DISORDER WITH PSYCHOTIC FEATURES (CMS/HCC) WRITTEN ON 11/16/2022 1:24 PM BY GUSTAVO MORGAN Assessment: Patient with stressed, lack of motivation, isolation, anxiousness, oversleeping, little energy, decreased appetite. he lives with her daughter and the daughter's family. Currently working tools and parts attendant cleaning. Reported Hx of SI attempt more than 9 years ago in [place], by overdosing with pills. Yesterday was assessed by Crisis, due to not wanting to be around anymore, but stated is not that I want to . Patient will benefit from Ind. Therapy with CBT approach. At this time Livia Mohan meets criteria for Visit Diagnoses: Problem List Items Addressed This Visit Other Major depressive disorder without psychotic features Patient ready to address current needs Yes Strengths include willing to seek treatment PLAN: Follow up with [facility]: Not recommended for follow-up Patient goal is to feel better Behavioral Recommendations Ind. Therapy with CBT approach Keeping Med. Management appts Use of coping skills provided at least 2x/day for 6 months to develop the skills Assessment & Plan (12/30/2024 11:03 AM EDT): >>ASSESSMENT AND PLAN FOR MAJOR DEPRESSIVE DISORDER WITH PSYCHOTIC FEATURES (CMS/HCC) WRITTEN ON 11/30/2022 11:41 AM BY LAURENT CANALES Presented with auditory and visual hallucinations, nightmares. [...] agrees with the plan. Assessment & Plan (12/30/2024 11:03 AM EDT): >>ASSESSMENT AND PLAN FOR MAJOR DEPRESSIVE DISORDER WITH PSYCHOTIC FEATURES (CMS/HCC) WRITTEN ON 01/16/2023 11:37 AM BY LAURENT CANALES Presented with auditory and visual hallucinations, nightmares. [...] agrees with the plan. Assessment & Plan (12/30/2024 11:03 AM EDT): >>ASSESSMENT AND PLAN FOR MAJOR DEPRESSIVE DISORDER WITH PSYCHOTIC FEATURES (CMS/HCC) WRITTEN ON 10/15/2023 9:27 AM BY LAURENT CANALES Presented with auditory and visual hallucinations, nightmares. Now doing well, with improved sleep and hallucinations controlled. Will continue Lexapro 20 mg daily, Risperidone 3 mg at bedtime. Referring again for counseling. Since this provider will be retiring, patient is now referred back to PCP for further medication management. Call [facility] with any issues or concerns. All her questions were answered and I have wished her well. She agrees with the plan. History of COVID-19 05/04/2022 Obesity 05/04/2022 Resolved Problems Problem Noted Date Diagnosed Date Resolved Date Depression 05/04/2022 05/16/2022 Encounters * This document contains information received from the source organization and may not represent a complete record from that organization. Date Type Department Care Team Description 02/09/2025 9:20 AM EST Office Visit [facility] [address] [place] [phone] Biceps tendinosis of left shoulder (Primary Dx); Pectoralis major tendinitis, left 01/05/2025 Telephone [facility] MEDICINE [address] [place] [phone] Shoshana Maharaj ANP insurance referral 12/30/2024 9:15 AM EDT Office Visit [facility] [address] [place] [phone] Shoshana Maharaj ANP Mixed hyperlipidemia (Primary Dx); Major depressive disorder with psychotic features (CMS/HCC); Class 1 obesity with serious comorbidity and body mass index (BMI) of 33.0 to 33.9 in adult, unspecified obesity type; Macromastia; Need for hepatitis B screening test; Mild intermittent reactive airway disease without complication; Encounter for immunization; Food insecurity; Low income 12/30/2024 Refill [facility] [address] [place], [place] [phone] Shoshana Maharaj ANP 12/30/2024 Travel 12/29/2024 Telephone [facility] MED[facility] [address] [place] [phone] Shoshana Maharaj ANP chart prep 11/26/2024 Refill [facility] [address] [place] [address] Shoshana Maharaj ANP Class 3 severe obesity with serious comorbidity and body mass index (BMI) of 40.0 to 44.9 in adult, unspecified obesity type from Last 3 Months Immunizations Immunization Administration Dates Next Due Influenza, seasonal, injectable, preservative fr ee 12/30/2024 Pneumococcal Conjugate PCV 20 12/30/2024 Tdap 02/21/2021 Social History Tobacco Use Types [...] Mass Index 30.57 02/09/2025 9:13 AM EST Plan of Treatment Health Maintenance Due Date Last Done Comments CT Colonography 1970 Colonoscopy 1970 Colorectal Cancer Screening 1970 FIT DNA/Cologuard 1970 FIT 1970 FOBT 1970 Sigmoidoscopy 1970 Hepatitis B Vaccines (1 of 3 - 19+ 3-dose series) 1989 Mammogram 2010 Zoster Vaccines (1 of 2) 2020 COVID-19 Vaccine (4 - 2024-2 6 season) 2024 04/23/2021, 10/06/2020, 2020 Alcohol/Substance Use Screening 03/27/2025 03/27/2024 Depression Monitoring 06/29/2025 12/30/2024 , 12/30/2024 Disability Screening 09/26/2025 09/26/2024 SDOH Screening 12/30/2025 12/30/2024 Tobacco Screening 12/30/2025 12/30/2024 Cervical Cancer Screening 01/19/2026 HPV/Cotest 01/19/2026 01/19/2021 Pap Smear 01/19/2026 01/19/2021 Lipid Panel 01/14/2029 01/15/2024, 11/14/2021 DTaP/Tdap/Td Vaccines (2 - T d or Tdap) 02/21/2031 02/21/2021 RSV Patients and Patients Aged 60 years or older (1 - 1-dose 75+ series) 2045 HIV Screening Completed 01/15/2024, 11/14/2021 Hepatitis C Screening Completed 01/15/2024 , 11/14/2021 Influenza Vaccine Completed 12/30/2024 Pneumococcal Vaccine: 50+ Years Completed 12/30/2024 HIB Vaccines Aged Out No longer eligi [...] age to complete this topic Meningococcal B Vaccine Aged Out No l onger eligible based on patient's age to complete [...] AM EST Biceps tendinosis of left shoulder HEPATITIS C AB W/REFL TO HCV RNA, [...] Recently Relevant to Health Maintenance Results * XR Shoulder 2+ Views Left (02/09/2025 10:32 AM EST) Anatomical Region Laterality Modality Upper Extremities, Shoulder Left Radi ographic Imaging 02/09/2025 10:3 2 AM EST Narrative 02/09/2025 11:01 AM EST [facility] [address] [place] [address] XRay Report Signed Patient: Livia Titus#: [id number] : 1970 Acct:[id number] Age/Sex: 54 / F ADM Date: 02/09/25 Loc: HO.HHCX Attending Dr: Ines Treviño MD Ordering Physician: Ines Treviño MD Date of Service: 02/09/25 Procedure(s): XR shoulder LT min 2V Accession Number(s): [id number] cc: Ines Treviño MD Reason for Exam: [...] in OV> 02/09/25 1058 DD/ 31 TD/TT: 02/09/251053 Range Technician: Procedure Note Graemeotjoanter, Image - 02/09/[address] [address] XRay Report Signed Patient: Sarbjit Titus R#: [id number] : 1970Acct:[id number] Age/Sex: 54 / FADM Date: 02/09/25 Loc: HO.HHCX Attending Dr: Ines Treviño MD Ordering Physician: Ines Treviño MD Date of Service: 02/09/25 Procedure(s): XR shoulder LT min 2V Accession Number(s): [id number] cc: Ines Treviño MD Reason for Exam: [...] by: Shiva Edmondson MD 02/09/2025 10:58 AM [facility] Dictated By: Shiva Edmondson MD Signed By: <Electronically signed by Shiva Edmondson MD in OV> 02/09/25 1058 DD/ 1032 TD/TT: 02/09/25 1054 Range Technician: Ines Treviño MD IMG XR PROCEDURES Edited Result - Final * Hepatitis C Antibody with Reflex to HCV, RNA, Quantitative, Real-Time PCR (01/15/2024 8:55 AM EDT) Hepatitis C Antibody Nonreactive Nonreactive [facility] Comment:Antibodies to HCV no t detected; does not exclude early acuteHCV infection. Blood Venous blood specimen / Unknown 01/15/2024 8:55 AM EDT 01/15/2024 11:35 AM EDT Shoshana Maharaj [facility] LAB BLOOD ORDERABLES Final Resul t Performing Organization Address [facility] de Phone Number [facility] [address] [place] [phone] * HIV-1/2 Antigen and Antibodies, Fourth Generation, with Reflexes (01/15/2024 8:55 AM EDT) Pathologist [facility] HIV AB/AG Nonreactive Nonreactive [facility] Comment:HIV-1 p24 Ag and/or HIV-1/HIV-2 Ab not detected.A test result that is nonreactive does not exclude thepossibility of exposure to or infection with HIV-1 and/orHIV-2. Nonreactive results in this assay for individualswith prior exposure to HIV-1 and/or HIV-2 may be due toantigen and antibody levels that are below the limit ofdetection of this assay.[employer] HIV Ag/Ab Combo assay result andsupplemental assay results should be interpreted inconjunction with the patient's clinical presentation,history and other laboratory results. If the results areinconsistent with clinical evidence, additional testing issuggested to confirm the result. Blood Venous blood specimen / Unknown 01/15/2024 8:55 AM EDT 01/15/2024 11:35 AM EDT hSoshana CRANDALL LAB BLOOD ORDERABLES Final Resul t Performing Organization Address [facility] Co de Phone Number [facility] [address] [place] [phone] * (ABNORMAL) Lipid Panel, Standard (01/15/2024 8:55 AM EDT) Triglycerides 167(H) <150 mg/dL [facility] Comment:Desirable Triglyceri de: less than 150 mg/dLBorderline High Triglyceride 150-199 mg/dLHigh Triglyceride: 200-499 mg/dLVery High Triglyceride: greater than or equal to 5OO mg/dL Cholesterol 255(H) <200 mg/dL [facility] Comment:Desirable Cholestero l: less than 200 mg/dLBorderline High Cholesterol: 200-239 mg/dLHigh Cholesterol: greater than 239 mg/dL LDL Cholesterol Calculated 170(H) <100 mg/dL [facility] Comment:Desirable LDL: less than 100 mg/dLNear Optimal/Above Optimal LDL: 110- 129 mg/dLBorderline High LDL: 130-159 mg/dLHigh LDL: 160-189 mg/dLVery High LDL: greater than or equal to 190 mg/dL HDL Cholesterol 52 >40 mg/dL [facility] Comment:Desirable HDL: great er than 40 mg/dL Note: This HDL assay may give artificially low results in patients with liver disease. Blood Venous blood specimen / Unknown 01/15/2024 8:55 AM EDT 01/15/2024 11:35 AM EDT [facility] LAB BLOOD ORDERABLES Final Resul t [facility] [address] [place] [address] [phone] * THINPREP TIS PAP (01/19/2021 3:57 PM EDT) Clinical Information: None given [facility] COMMENT SEE COMMENT [facility] Comment: EXPLANATORY NOTE: The Pap is a screening test for cervical cancer. It is not a diagnostic test and is subject to false negative and false positive results. It is most reliable when a satisfactory sample, regularly obtained, is submitted with relevant clinical findings and history, and when the Pap result is evaluated along with historic and current clinical information. COMMENT: This Pap test has been evaluated with computer assisted technology. [facility] [employer] Products Sales Representative : SEE COMMENT [facility] Comment: MSM, CT(ASCP) CT screening location: [address] [address] Interpretation/R esult: Negative for intraepithelial lesion or malignancy. [facility] LMP: 01/26 [facility] Prev. BX: NONE GIVEN [facility] Prev. PAP: NONE GIVEN [facility] SOURCE: None given [facility] Statement Of Adequacy: SEE COMMENT [facility] Comment: Satisfactory for evaluation. Endocervical/transformation zone component absent. 01/19/2021 3:57 PM EDT Liliya SULLIVAN LAB PATHOLOGY ORDERABLES Final Result Performing Organization Address [facility] de Phone Number [facility] [address] * HPV mRNA E6/E7 (01/19/2021 3:57 PM EDT) HPV nRNA E6/E7 Not Detected Not Detected [facility] Comment: Methodology: Senior Librarian-Mediated Amplification This assay detects E6/E7 viral messenger RNA (mRNA) from 14 high-risk HPV types (16,18,31,33,35,39,45,51,52,56,58,59,66,68). The analytical performance characteristics of this assay have been determined by [employer]. The modifications have not been cleared or approved by the FDA. This assay has been validated pursuant to the CLIA regulations and is used for clinical purposes. For additional information, please refer to http://education.[employer]/faq/GYO256y0 (This link if provided for information/ educational purposes only.) 01/19/2021 3:57 PM EDT Liliya SULLIVAN LAB BLOOD ORDERABLES Carmela l Result Performing Organization Address [facility] Co de Phone Number [facility] [address] from Last 3 Months or Most Recently Relevant to Health Maintenance Insurance [facility] C3 Care Teams Customer Assistance Representative Relationship Specialty Start Date End Date Shoshana Mahaarj ANP [address] [place] [phone] PCP - General Family Medicine 02/21/21
--- OUTSIDE RECORDS SUMMARY | 2025-02-09 12:03 | XMS_ITS | Encounter Summary ---
Author Organization [employer] Address [address] [facility] [address] [place] [address] Care Team Providers Care Cnc Router Operator Name Role Phone Shoshana Maharaj Primary Care Provider [phone] Reason for Visit * Reason Comments Med Refill Encounter Details Date Type Department Care Team ([facility] st Contact Info) Description 08/05/2024 Refill [facility] [address] [place], [place] [phone] Shoshana Maharaj ANP [address] [place] [address] Class 3 severe obesity with serious comorbidity and body mass index (BMI) of 40.0 to 44.9 in adult, unspecified obesity type Social History Tobacco Use Types Packs/Day Years [...] documented as of this encounter Visit Diagnoses Diagnosis Class 3 severe obesity with serious comorbidity and body mass index (BMI) of 40.0 to 44.9 in adult, unspecified obesity type (HCC) documented in this encounter Additional Health Concerns Assessment Noted Time PHQ-9 Depression Total Score: 11 024 9:08 AM EDT documented as of this encounter Care Teams Cnc Router Operator Relationship Specialty Start Date End Date Shoshana Maharaj ANP [address] [place] [address] PCP - General Family Medicine 02/21/21 documented as of this encounter
--- OUTSIDE RECORDS SUMMARY | 2025-02-09 12:03 | XMS_ITS | Encounter Summary ---
Author Organization [employer] Address [address] [place] [address] [address] [place] [address] Care Team Providers Care Analog Ic Design Engineer Name Role Phone Shoshana Maharaj Primary Care Provider [phone] Reason for Visit * Reason Onset Date Comments Nurse Triage 11/15/2022 Appointment 11/16/2022 Appt Schedule fo r [facility] Encounter Details Date Type Department Care Team (Late st Contact Info) Description 11/15/2022 Telephone [facility] MED[facility] [address] [place] [address] Shoshana Maharaj ANP [address] [place] [address] Nurse Triage; Appointment (Appt Schedule for [facility]) [...] AM EDT documented as of this encounter Functional Status * Over the past 2 weeks, how often have you been bothered by any of the following problems? Question Answer Date of Assessment Author Patient Health Questionnaire-2 Score 4 11/07 12:15 PM EDT Ne Abad * Over the past 2 weeks, how often have you been bothered by any of the following problems? Question Answer Date of Assessment Author Little interest or pleasure in doing things More than half the days 11/16/2022 12:15 PM EDT Ne Abad Feeling down, depressed, or hopeless More than half the days 11/16/2022 12:15 PM EDT Ne Abad documented as of this encounter Miscellaneous Notes [...] No answer, LVM to return call to [facility] triage line. Call placed to [employer] at [phone], requested wellness check for patient due to [...] were negative * Telephone Encounter - Jessica Paul - 11/15/2022 8:51 AM EDT Symptoms: Anxiety or Panic Attack, Depression Outcome: Schedule an urgent appointment (within 4 hours) or talk to a nurse or provider soon Reason: Getting worse (bad thoughts to hurt herself) The caller accepted this outcome Patient disconnected call while senior mortgage underwriter tried to get triage nurse on the line. Patient speaks hebrew documented in this encounter Plan of Treatment Not on file documented as of this encounter Visit Diagnoses Not on filedocumented in this encounter Additional Health Concerns Assessment Noted Time PHQ-9 Depression Total Score: 14 023 1:47 PM EDT documented as of this encounter Care Teams Analog Ic Design Engineer Relationship Specialty Start Date End Date Shoshana Maharaj ANP [address] [place] [phone] PCP - General Family Medicine 02/21/21 documented as of this encounter
== END 2025-02-09 10:06 | disposition home or self-care (01) ==
LOC: HO.HHCX 10:05
PROVIDERS: Visit Provider Internal Medicine
DX: M67.814 Other specified disorders of tendon, left shoulder (principal)
CPT/HCPCS: 73030

== ENCOUNTER → 2025-02-09 10:05 | Outpatient (BNV) | payer MEDICAID, SELFPAY | PROVIDERS: Visit Provider Radiology Diagnostic Radiology | DX: M75.32 Calcific tendinitis of left shoulder (principal); M19.012 Primary osteoarthritis, left shoulder | CPT/HCPCS: 73030 ==